=== PATIENT | female | born 1990 | race Caucasian/White ===

== ENCOUNTER 2016-08-01 07:34 | Emergency (ER) | payer BC ==
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
[2016-08-01 07:49] VITALS: BP 126/60
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
== END 2016-08-01 08:31 | disposition home or self-care (01) ==
LOC: MW.ED 07:34
DX: S99.911A Unspecified injury of right ankle, initial encounter (principal); K21.9 Gastro-esophageal reflux disease without esophagitis; F41.9 Anxiety disorder, unspecified; F32.9 Major depressive disorder, single episode, unspecified; J45.909 Unspecified asthma, uncomplicated; Z87.440 Personal history of urinary (tract) infections; Z88.1 Allergy status to other antibiotic agents; Z88.8 Allergy status to other drugs, medicaments and biological substances; X50.1XXA Overexertion from prolonged static or awkward postures, initial encounter
CPT/HCPCS: 73610-26-RT; 73610-RT; 99282; 99283

== ENCOUNTER 2016-08-09 03:06 | Emergency (ER) | payer BC ==
[2016-08-09 03:48] LABS: CHLORIDE,CL 109 mmol/L (98-110); SODIUM,NA 142 mmol/L (136-146)
[2016-08-09] MEDS ORDERED: Ondansetron 4 MG Tab.DIS PO STA (04:27)
[2016-08-09] MEDS ORDERED: Dicyclomine 10 MG Cap PO STA (04:28)
[2016-08-09 04:39] VITALS: BP 99/59
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
--- NOTE | 2016-08-09 11:44 | CR ---
EXAM DATE: 08/09/16 PATIENT'S AGE: 25 Patient: MAXIMILIANO ACUÑA Facility: [place], [place] Site . Site : 1990 Study: XRay Extremity Right [id number]/4/2017 4:00:28 AM Ordering Physician: Doctor Mathis Final Report: Indication: Re-injury right ankle Technique: Three views right ankle Comparison: August 01, 2016. Findings: Bones: Alignment is normal. No fractures or bone lesions. Joint spaces: Unremarkable. Soft tissues: Unremarkable. Impression: Negative. Dictated by Lea Asher MD @ Aug 09 2016 4:07AM (Electronic Signature) Report Signed by Proxy and Original Signed Document filed in the Medical Record. MTDD
== END 2016-08-09 04:59 | disposition home or self-care (01) ==
LOC: MW.ED 03:06
DX: M25.571 Pain in right ankle and joints of right foot (principal); N94.6 Dysmenorrhea, unspecified; J45.909 Unspecified asthma, uncomplicated; F32.9 Major depressive disorder, single episode, unspecified; F31.9 Bipolar disorder, unspecified; F41.9 Anxiety disorder, unspecified; Z79.899 Other long term (current) drug therapy; Z88.1 Allergy status to other antibiotic agents; Z88.8 Allergy status to other drugs, medicaments and biological substances
CPT/HCPCS: 36415; 73610; 80053; 82150; 83690; 84703; 85025; 99284; A9270; 99283

== ENCOUNTER 2016-09-08 07:49 | Day surgery (SDC) | payer BC ==
[2016-09-07 14:44] LABS: CHLORIDE,CL 107 mmol/L (98-110); SODIUM,NA 139 mmol/L (136-146)
[~2016-09-08 07:49] MED LIST: Lactated Ringers 1,000 ML IV SCH; Lidocaine 2% 100 MG/5 ML Syringe ONE; Lidocaine 2% 5 ML SDV ONE; Octyl 2-Cyanoacrylate 1 Tube ONE; Propofol 200 MG/20 ML SDV ONE; Sodium Chloride 0.9% 10 ML Syringe FLUSH PRN; Sodium Chloride 0.9% 2.5 ML Syringe FLUSH PRN
--- NOTE | 2016-09-08 08:46 | PCM.PREANE ---
Preanesthetic Assessment - Anesthesia/Transfusion/Family Hx Anesthesia History: No Prior Anesthesia Family History of Anesthesia Reaction: No Transfusion History: No Prior Transfusion(s) Intubation History: Unknown - Review of Systems General: No Symptoms Pulmonary: No Symptoms Cardiovascular: No Symptoms Gastrointestinal: No symptoms Neurological: No Symptoms Other: Reports: None - Physical Assessment O2 Sat by Pulse Oximetry: 97 Respiratory Rate: 16 Vital Signs: Last Vital Signs Temp 37.2 C 09/08/16 08:03 Pulse 92 09/08/16 08:03 Resp 16 09/08/16 08:03 BP 119/61 09/08/16 08:03 Pulse Ox 97 09/08/16 08:03 Height: 1.63 m Weight: 60.781 kg ASA Class: 2 Mental Status: Alert & Oriented x3 Airway Class: Mallampati = 2 Dentition: Reports: Normal Dentition ROM/Head Extension: Full Lungs: Clear to auscultation, Normal respiratory effort Cardiovascular: Regular Rate, Regular Rhythm - Lab Values: Laboratory Last Values WBC 6.23 K/uL (4.0-11.0) 09/07/16 14: RBC 4.60 M/uL (4.30-5.90) 09/07/16 14:17 Hgb 14.2 g/dL (12.0-16.0) 09/07/16 14:17 Hct 41.9 % (36.0-46.0) 09/07/16 14:17 MCV 91.1 fL (80.0-98.0) 09/07/16 14:17 MCH 30.9 pg (27.0-32.0) 09/07/16 14:17 MCHC 33.9 g/dL (31.0-37.0) 09/07/16 14:17 RDW Std Deviation 42.3 fl (28.0-62.0) 09/07/16 14:17 RDW Coeff of Thang 13 % (11.0-15.0) 09/07/16 14:17 Plt Count 242 K/uL (150-400) 09/07/16 14:17 MPV 10.20 fL (7.40-12.00) 09/07/16 14:17 Nucleated RBC % 0.0 /100WBC 09/07/16 14:17 Nucleated RBCs # 0 K/uL 09/07/16 14:17 Sodium 139 mmol/L (136-146) 09/07/16 14:17 Potassium 4.0 mmol/L (3.5-5.1) 09/07/16 14:17 Chloride 107 mmol/L (98-110) 09/07/16 14:17 Carbon Dioxide 21 mmol/L (21-31) 09/07/16 14:17 BUN 7 mg/dL (6.0-23.0) 09/07/16 14:17 Creatinine 0.9 mg/dL (0.6-1.5) 09/07/16 14:17 Est Cr Clr Drug Dosing 83.11 mL/min 09/07/16 14:17 Estimated GFR (MDRD) > 60.0 ml/min 09/07/16 14:17 Glucose 78 mg/dL (60-110) 09/07/16 14:17 Calcium 9.2 mg/dL (8.8-10.8) 09/07/16 14:17 HCG, Qual NEGATIVE (NEG) 09/07/16 14:17 Blood Type B POSITIVE 09/07/16 14:17 Antibody Screen NEGATIVE 09/07/16 14:17 - Allergies Allergies/Adverse Reactions: Allergies Allergy/AdvReac Type Severity Reaction Status Date / Time amoxicillin trihydrate Allergy Vomiting Verified 09/07/16 15:03 [From Augmentin] doxycycline Allergy Vomiting Verified 09/07/16 15:03 metronidazole [From Flagyl] Allergy Rash Verified 09/07/16 15:03 potassium clavulanate Allergy Vomiting Verified 09/07/16 15:03 [From Augmentin] - Blood Blood Available: No - Anesthesia Plan Pre-Op Medication Ordered: None - Acknowledgements Anesthesia Type Planned: General Anesthesia Pt an Appropriate Candidate for the Planned Anesthesia: Yes Alternatives and Risks of Anesthesia Discussed w Pt/Guardian: Yes Pt/Guardian Understands and Agrees with Anesthesia Plan: Yes PreAnesthesia Questionnaire HEENT History: Reports: None Cardiovascular History: Reports: None Respiratory History: Reports: Asthma Other Respiratory History: allergy related asthma Gastrointestinal History: Reports: GERD Genitourinary History: Reports: None Other Genitourinary History: herpes simplex 2 SVP [employer] History: Reports: , Other (see below) Other OB/BYN History: states pelvic pain x 4 years Musculoskeletal History: Reports: Back pain, chronic, Fracture Other Musculoskeletal History: lumbar disc disease, hx of fx left foot and right hand Neurological History: Reports: Migraines Psychiatric History: Reports: Anxiety, Bipolar, Depression Endocrine/Metabolic History: Reports: None Hematologic History: Reports: None Immunologic History: Reports: None Other Immunologic History: HSV-2 Oncologic (Cancer) History: Reports: None Dermatologic History: Reports: Other (see below) Other Dermatologic History: has genital herpes - Infectious Disease History Infectious Disease History: Reports: Chicken pox, Herpes Other Infectious Disease History: HSV-2 - Past Surgical History Head Surgeries/Procedures: Reports: None HEENT Surgical History: Reports: None Cardiovascular Surgical History: Reports: None Respiratory Surgical History: Reports: None GI Surgical History: Reports: None Female Surgical History: Reports: D&C Endocrine Surgical History: Reports: None Neurological Surgical History: Reports: None Musculoskeletal Surgical History: Reports: None Oncologic Surgical History: Reports: None Dermatological Surgical History: Reports: None - SUBSTANCE USE Smoking Status *Q: Never Smoker Second Hand Smoke Exposure: No Days Per Week of Alcohol Use: 1 Number of Drinks Per Day: 1 Total Drinks Per Week: 1 Recreational Drug Use History: No Recreational Drug Type: Reports: Cocaine - HOME MEDS Home Medications: Home Meds Desogestrel/Ethinyl Estradiol [Apri] 1 tab PO DAILY 02/28/15 [History] Albuterol Sulfate [Ventolin Hfa] 2 puff INH DAILY PRN 11/12/15 [History] clonazePAM [Klonopin] 2 mg PO QPM 11/12/15 [History] valACYclovir HCl [Valtrex] 1,000 mg PO QPM 11/12/15 [History] Sertraline [Zoloft] 100 mg PO BEDTIME 04/07/16 [History] Ondansetron [Zofran ODT] 4 mg PO ASDIRECTED 09/07/16 [History] - CURRENT (IN HOUSE) MEDS Current Meds: Current Medications Lactated Ringer's (Ringers, Lactated) 1,000 mls @ 125 mls/hr IV ASDIRECTED SARMAD Last Admin: 09/08/16 08:04 Dose: 125 mls/hr Sodium Chloride (Saline Flush) 10 ml FLUSH ASDIRECTED PRN PRN Reason: Keep Vein Open Sodium Chloride (Saline Flush) 2.5 ml FLUSH ASDIRECTED PRN PRN Reason: Keep Vein Open Discontinued Medications Lidocaine (Xylocaine-Mpf 2%) Confirm Administered Dose 5 ml .ROUTE .STK-MED ONE Stop: 09/08/16 07:30 Lidocaine HCl (Xylocaine 2%) Confirm Administered Dose 100 mg .ROUTE .STK-MED ONE Stop: 09/08/16 07:30 Octyl Cyanoacrylate (Dermabond Advance) Confirm Administered Dose 1 applic .ROUTE .STClearApp-MED ONE Stop: 09/08/16 06:49 Propofol (Diprivan 20 Ml) Confirm Administered Dose 400 mg .ROUTE .STK-MED ONE Stop: 09/08/16 07:30
[2016-09-08] MEDS ORDERED: fentaNYL 250 MCG/5 ML SDV ONE (08:59)
[2016-09-08] MEDS ORDERED: Midazolam 1 MG/ML 2 ML SDV ONE (08:59)
[2016-09-08] MEDS ORDERED: Rocuronium 10 MG/ML 10 ML Syringe ONE (09:02)
[2016-09-08] MEDS ORDERED: Neostigmine Methylsulfate 1 MG/ML 5 ML Syringe ONE (09:02)
[2016-09-08] MEDS ORDERED: Ondansetron 4 MG/2 ML SDV IVPUSH PRN (10:11)
[2016-09-08] MEDS ORDERED: Morphine 2 MG/ML Syringe IVPUSH PRN (10:11)
[2016-09-08] MEDS ORDERED: Morphine 4 MG/ML Syringe IVPUSH PRN (10:11)
[2016-09-08] MEDS ORDERED: Promethazine 25 MG/ML SDV IM PRN (10:11)
[2016-09-08] MEDS ORDERED: Ketorolac 30 MG/ML SDV IVPUSH ONE (10:11)
[2016-09-08] MEDS ORDERED: Ketorolac 30 MG/ML SDV IVPUSH PRN (10:11)
[2016-09-08] MEDS ORDERED: Acetaminophen/oxyCODONE 325-5 MG Tab PO PRN ×2 (10:11)
--- NOTE | 2016-09-08 10:16 | PCM.OPNOTE ---
- General Post-Op/Procedure Note Date of Surgery/Procedure: 09/08/16 Operative Procedure(s): Hystroscopy Dignostic laparascopy Pre Op Diagnosis: Pelvic pain Post-Op Diagnosis: Same Primary Surgeon: Frederick Patrick Audio Production Manager: Sadia Limon EBL in mLs: 25 Complications: None Condition: Good
--- NOTE | 2016-09-08 10:17 | PCM.DCSUM1 ---
Discharge Summary - Discharge Data Discharge Date: 09/08/16 Discharge Disposition: Home, Self-Care 01 Condition: Good - Patient Summary/Data Operative Procedure(s) Performed: Hystroscopy Dignostic laparascopy - Discharge Plan Home Medications: Home Meds Desogestrel/Ethinyl Estradiol [Apri] 1 tab PO DAILY 02/28/15 [History] Albuterol Sulfate [Ventolin Hfa] 2 puff INH DAILY PRN 11/12/15 [History] clonazePAM [Klonopin] 2 mg PO QPM 11/12/15 [History] valACYclovir HCl [Valtrex] 1,000 mg PO QPM 11/12/15 [History] Sertraline [Zoloft] 100 mg PO BEDTIME 04/07/16 [History] Ondansetron [Zofran ODT] 4 mg PO ASDIRECTED 09/07/16 [History] - General Info Date of Service: 09/08/16 Functional Status: Reports: pain controlled - Review of Systems General: Reports: No Symptoms HEENT: Reports: no symptoms Pulmonary: Reports: no symptoms Cardiovascular: Reports: No Symptoms Gastrointestinal: Reports: No symptoms Genitourinary: Reports: no symptoms Musculoskeletal: Reports: no symptoms Skin: Reports: no symptoms Neurological: Reports: No Symptoms Psychiatric: Reports: no symptoms - Patient Data Vitals - Most Recent: Last Vital Signs Temp 37.2 C 09/08/16 08:03 Pulse 92 09/08/16 08:03 Resp 16 09/08/16 08:46 BP 119/61 09/08/16 08:03 Pulse Ox 97 09/08/16 08:46 Weight - Most Recent: 60.781 kg Lab Results - Last 24 hrs: Laboratory Results - last 24 hr 09/07/16 09/07/16 09/07/16 Range/Units 14:17 14:17 14:17 WBC 6.23 (4.0-11.0) K/uL RBC 4.60 (4.30-5.90) M/uL Hgb 14.2 (12.0-16.0) g/dL Hct 41.9 (36.0-46.0) % MCV 91.1 (80.0-98.0) fL MCH 30.9 (27.0-32.0) pg MCHC 33.9 (31.0-37.0) g/dL RDW Std Deviation 42.3 (28.0-62.0) fl RDW Coeff of Thang 13 (11.0-15.0) % Plt Count 242 (150-400) K/uL MPV 10.20 (7.40-12.00) fL Nucleated RBC % 0.0 /100WBC Nucleated RBCs # 0 K/uL Sodium 139 (136-146) mmol/L Potassium 4.0 (3.5-5.1) mmol/L Chloride 107 (98-110) mmol/L Carbon Dioxide 21 (21-31) mmol/L BUN 7 (6.0-23.0) mg/dL Creatinine 0.9 (0.6-1.5) mg/dL Est Cr Clr Drug Dosing 83.11 mL/min Estimated GFR (MDRD) > 60.0 ml/min Glucose 78 (60-110) mg/dL Calcium 9.2 (8.8-10.8) mg/dL HCG, Qual NEGATIVE (NEG) Blood Type Antibody Screen 09/07/16 Range/Units 14:17 WBC (4.0-11.0) K/uL RBC (4.30-5.90) M/uL Hgb (12.0-16.0) g/dL Hct (36.0-46.0) % MCV (80.0-98.0) fL MCH (27.0-32.0) pg MCHC (31.0-37.0) g/dL RDW Std Deviation (28.0-62.0) fl RDW Coeff of Thang (11.0-15.0) % Plt Count (150-400) K/uL MPV (7.40-12.00) fL Nucleated RBC % /100WBC Nucleated RBCs # K/uL Sodium (136-146) mmol/L Potassium (3.5-5.1) mmol/L Chloride (98-110) mmol/L Carbon Dioxide (21-31) mmol/L BUN (6.0-23.0) mg/dL Creatinine (0.6-1.5) mg/dL Est Cr Clr Drug Dosing mL/min Estimated GFR (MDRD) ml/min Glucose (60-110) mg/dL Calcium (8.8-10.8) mg/dL HCG, Qual (NEG) Blood Type B POSITIVE Antibody Screen NEGATIVE Med Orders - Current: Current Medications Lactated Ringer's (Ringers, Lactated) 1,000 mls @ 125 mls/hr IV ASDIRECTED SARMAD Last Admin: 09/08/16 08:04 Dose: 125 mls/hr Ketorolac Tromethamine (Toradol) 30 mg IVPUSH ONETIME ONE Stop: 09/08/16 10:12 Ketorolac Tromethamine (Toradol) 30 mg IVPUSH Q6H PRN PRN Reason: Pain (severe 7-10) Stop: 09/13/16 10:12 Morphine Sulfate (Morphine) 2 mg IVPUSH Q2H PRN PRN Reason: Pain (severe 7-10) Morphine Sulfate (Morphine) 4 mg IVPUSH Q2H PRN PRN Reason: Pain (severe 7-10) Ondansetron HCl (Zofran) 4 mg IVPUSH Q6H PRN PRN Reason: Nausea/Vomiting Oxycodone/Acetaminophen (Percocet 325-5 Mg) 1 tab PO Q4H PRN PRN Reason: Pain (moderate 4-6) Oxycodone/Acetaminophen (Percocet 325-5 Mg) 2 tab PO Q4H PRN PRN Reason: Pain (moderate 4-6) Promethazine HCl (Phenergan) 25 mg IM Q6H PRN PRN Reason: Nausea/Vomiting Sodium Chloride (Saline Flush) 10 ml FLUSH ASDIRECTED PRN PRN Reason: Keep Vein Open Sodium Chloride (Saline Flush) 2.5 ml FLUSH ASDIRECTED PRN PRN Reason: Keep Vein Open Discontinued Medications Fentanyl (Sublimaze) Confirm Administered Dose 250 mcg .ROUTE .STK-MED ONE Stop: 09/08/16 09:00 Glycopyrrolate () Confirm Administered Dose 1 mg .ROUTE .STK-MED ONE Stop: 09/08/16 09:03 Lidocaine (Xylocaine-Mpf 2%) Confirm Administered Dose 5 ml .ROUTE .STK-MED ONE Stop: 09/08/16 07:30 Lidocaine HCl (Xylocaine 2%) Confirm Administered Dose 100 mg .ROUTE .STK-MED ONE Stop: 09/08/16 07:30 Midazolam HCl (Versed 1 Mg/Ml) Confirm Administered Dose 2 mg .ROUTE .STK-MED ONE Stop: 09/08/16 09:00 Neostigmine Methylsulfate (Neostigmine) Confirm Administered Dose 5 mg .ROUTE .STK-MED ONE Stop: 09/08/16 09:03 Octyl Cyanoacrylate (Dermabond Advance) Confirm Administered Dose 1 applic .ROUTE .STK-MED ONE Stop: 09/08/16 06:49 Propofol (Diprivan 20 Ml) Confirm Administered Dose 400 mg .ROUTE .STK-MED ONE Stop: 09/08/16 07:30 Rocuronium [place] (Zemuron) Confirm Administered Dose 100 mg .ROUTE .STK-MED ONE Stop: 09/08/16 09:03 - Exam General: Reports: alert, oriented HEENT: Reports: Pupils equal, Pupils reactive, EOMI, Mucous membr. moist/pink Neck: Reports: supple Lungs: Reports: Clear to auscultation, Normal respiratory effort Cardiovascular: Reports: Regular Rate, Regular Rhythm Abdomen: Reports: bowel sounds present, soft, no tenderness, no distension (Female) Exam: Normal external exam, Normal speculum exam, Normal bimanual exam Rectal (Female) Exam: Normal Exam, Normal rectal tone Back Exam: Reports: normal inspection, full range of motion Extremities: Reports: no edema, normal pulses Skin: Reports: warm, dry, intact Wound/Incisions: Reports: healing well Neurological: Reports: no new focal deficit Psy/Mental Status: Reports: alert, normal affect, normal mood *Q Meaningful Use (DIS) - VTE *Q VTE Criteria *Q: - Stroke *Q Stroke Criteria *Q: - AMI *Q AMI Criteria *Q:
[2016-09-08] MEDS ORDERED: fentaNYL 100 MCG/2 ML SDV ONE (10:33)
[2016-09-08] MEDS: fentaNYL 100 MCG/2 ML SDV IVPUSH PRN ×4 (10:35→11:02)
--- NOTE | 2016-09-08 11:04 | PCM.POSTAN ---
POST ANESTHESIA ASSESSMENT - MENTAL STATUS Mental Status: alert, oriented - RESPIRATORY Respiratory Status: respiratory rate WNL, airway patent, O2 saturation stable - CARDIOVASCULAR CV Status: pulse rate WNL, blood pressure stable - GASTROINTESTINAL GI Status: no symptoms - PAIN Pain Score: 4 (\) - POST OP HYDRATION Hydration Status: adequate & stable - OBSERVATIONS Free Text/Narrative:: no anesthesia problems
[2016-09-08 12:35] VITALS: BP 114/59
--- NOTE | 2016-09-08 12:59 | OR ---
SURGEON: Frederick Patrick MD DATE OF PROCEDURE: PREOPERATIVE DIAGNOSES: Pelvic pain, dysfunctional uterine bleeding. POSTOPERATIVE DIAGNOSES: Pelvic pain, dysfunctional uterine bleeding. OPERATION PERFORMED: A hysteroscopy and diagnostic laparoscopy. LAPELER: LEXIE Bentley. ANESTHESIA: General endotracheal intubation by Luke Tamayo and Dr. Brantley. ESTIMATED BLOOD LOSS: Less than 25 mL. COMPLICATION: None. FINDING: The hysteroscopic finding essentially is normal. Both tubal ostia was visualized and there is no polyp. There is no fibroid. The laparoscopic finding, the right ovary essentially is normal. The right pelvic sidewall is normal. The cul-de-sac is normal. The left ovary and the left pelvic sidewall was normal. There is no evidence of endometriosis. There is no evidence of scarring. INDICATION: This 26-year-old patient has pelvic pain. For detail of her indication, reader refer to the admit note. PROCEDURE IN DETAIL: The patient was brought to the OR, properly identified, and after adequate level of general anesthesia, and after taken a time out, the patient was prepped and draped in sterile fashion as usual. Straight catheter was used to empty the bladder and then the cervix was grabbed with a single-tooth tenaculum, dilated sequentially to accommodate. The hysteroscope and then hysteroscopy was performed. The hysteroscopic finding was normal. Both tubal ostia was visualized. There was no polyps and there was no fibroid. Satisfied with these findings. The hysteroscopic part of the procedure was ended and then Hulka manipulator placed in the uterus for manipulation. Then, the operation shifted abdominally. Stab wound done beneath the umbilicus. The Veress needle was placed in the peritoneal cavity and that cavity insufflated 3.5 L carbon dioxide and then utilizing the Visiport technique, the center trocar beneath the umbilicus placed and the peritoneal cavity was entered. Once we did that, then the patient placed in steep Trendelenburg and the 5-mm trocar placed in the left iliac fossa. The operation started by exploring the pelvis. The uterus was essentially was normal size, normal. There was no evidence of scarring. The right tubes and ovary are normal. The right pelvic sidewall was normal. There was no endometriosis. The left pelvic side wall was normal and the left pelvic tubes and ovaries normal. Bladder flap essentially was normal. Visualizing the appendix, the appendix was normal. There is no evidence. There is no gynecologic abnormality. Satisfied with these finding. Then peritoneal lavage was performed and after that the laparoscope was removed from the peritoneal cavity and so as the trocars, and the air evacuated from the peritoneal cavity in the multiple laparoscopic incisions closed in layers. Instrument sponge count was correct. The patient tolerated the procedure well, went to recovery room in stable general condition. LULY / REDDY /[id number]
== END 2016-09-08 12:36 | disposition home or self-care (01) ==
LOC: MW.SDS 07:49
PROVIDERS: ATTEND Obstetrics & Gynecology
DX: N93.8 Other specified abnormal uterine and vaginal bleeding (principal); R10.2 Pelvic and perineal pain; K21.9 Gastro-esophageal reflux disease without esophagitis; F41.9 Anxiety disorder, unspecified; M54.9 Dorsalgia, unspecified; F31.9 Bipolar disorder, unspecified; G43.909 Migraine, unspecified, not intractable, without status migrainosus; Z79.899 Other long term (current) drug therapy; Z88.0 Allergy status to penicillin; Z88.8 Allergy status to other drugs, medicaments and biological substances; Z88.1 Allergy status to other antibiotic agents; Z86.19 Personal history of other infectious and parasitic diseases
CPT/HCPCS: 36415; 49320; 58555; 80048; 84703; 85027; 86850; 86900; 86901; A9270; J2250; J3010; J7120; 00952; J2704

== ENCOUNTER 2016-09-26 17:14 | Emergency (ER) | payer BC ==
[2016-09-26 17:26] VITALS: BP 121/62
[2016-09-26] MEDS ORDERED: Sodium Chloride 0.9% 1,000 ML IV ONE (17:31)
[2016-09-26] MEDS ORDERED: Ondansetron 4 MG/2 ML SDV IVPUSH ONE (17:31)
--- NOTE | 2016-09-26 17:46 | EDM.PDOC ---
ED HPI GENERAL MEDICAL PROBLEM - General Chief Complaint: Abdominal Pain Stated Complaint: PT HAS STOMACH PAINS Time Seen by Provider: 09/26/16 17:20 - History of Present Illness INITIAL COMMENTS - FREE TEXT/NARRATIVE: HISTORY AND PHYSICAL: History of present illness: Patient 26-year-old female she concern of abdominal pain and vaginal bleeding patient is approximately 2 weeks status post laparoscopy for endometriosis she stopped her hormone therapy without M.D. involvement. She denies fever chills chest pain shortness of breath or other concern Review of systems: As per history of present illness and below otherwise all systems reviewed and negative. Past medical history: As per history of present illness and as reviewed below otherwise noncontributory. Surgical history: As per history of present illness and as reviewed below otherwise noncontributory. Social history: No reported history of drug or alcohol abuse. Family history: As per history of present illness and as reviewed below otherwise noncontributory. Physical exam: HEENT: Atraumatic, normocephalic, pupils reactive, negative for conjunctival pallor or scleral icterus, mucous membranes moist, throat clear, neck supple, nontender, trachea midline. Lungs: Clear to auscultation, breath sounds equal bilaterally, chest nontender. Heart: S1S2, regular, negative for clicks, rubs, or JVD. Abdomen: Soft, nondistended, no localized tenderness. Negative for masses or hepatosplenomegaly. Negative for costovertebral tenderness. Pelvis: Stable nontender. Genitourinary: Deferred. Rectal: Deferred. Extremities: Atraumatic, Neuro: Awake, alert, oriented. 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 Left Lower Abdominal Pain Score (Numeric/FACES): 8 - Related Data Allergies Allergy/AdvReac Type Severity Reaction Status Date / Time amoxicillin trihydrate Allergy Vomiting Verified 09/07/16 15:03 [From Augmentin] doxycycline Allergy Vomiting Verified 09/07/16 15:03 metronidazole [From Flagyl] Allergy Rash Verified 09/07/16 15:03 potassium clavulanate Allergy Vomiting Verified 09/07/16 15:03 [From Augmentin] Home Meds: Home Meds Desogestrel/Ethinyl Estradiol [Apri] 1 tab PO DAILY 02/28/15 [History] Albuterol Sulfate [Ventolin Hfa] 2 puff INH DAILY PRN 11/12/15 [History] clonazePAM [Klonopin] 2 mg PO QPM 11/12/15 [History] valACYclovir HCl [Valtrex] 1,000 mg PO QPM 11/12/15 [History] Sertraline [Zoloft] 100 mg PO BEDTIME 04/07/16 [History] Ondansetron [Zofran ODT] 4 mg PO ASDIRECTED 09/07/16 [History] Past Medical History HEENT History: Reports: None Cardiovascular History: Reports: None Respiratory History: Reports: Asthma Other Respiratory History: allergy related asthma Gastrointestinal History: Reports: GERD Genitourinary History: Reports: None Other Genitourinary History: herpes simplex 2 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: , Other (See Below) Other OB/BYN History: states pelvic pain x 4 years Musculoskeletal History: Reports: Back Pain, Chronic, Fracture Other Musculoskeletal History: lumbar disc disease, hx of fx left foot and right hand Neurological History: Reports: Migraines Psychiatric History: Reports: Anxiety, Bipolar, Depression Endocrine/Metabolic History: Reports: None Hematologic History: Reports: None Immunologic History: Reports: None Other Immunologic History: HSV-2 Oncologic (Cancer) History: Reports: None Dermatologic History: Reports: Other (See Below) Other Dermatologic History: has genital herpes - Infectious Disease History Infectious Disease History: Reports: Chicken Pox, Herpes Other Infectious Disease History: HSV-2 - Past Surgical History Head Surgeries/Procedures: Reports: None HEENT Surgical History: Reports: None Cardiovascular Surgical History: Reports: None Respiratory Surgical History: Reports: None GI Surgical History: Reports: None Female Surgical History: Reports: D&C Endocrine Surgical History: Reports: None Neurological Surgical History: Reports: None Oncologic Surgical History: Reports: None Social & Family History - Family History Family Medical History: Noncontributory - Tobacco Use Smoking Status *Q: Never Smoker Second Hand Smoke Exposure: No - Caffeine Use Caffeine Use: Reports: None, Soda - Alcohol Use Days Per Week of Alcohol Use: 1 Number of Drinks Per Day: 1 Total Drinks Per Week: 1 - Recreational Drug Use Recreational Drug Use: No Drug Use in Last 12 Months: No Recreational Drug Type: Reports: Cocaine Recreational Drug Use Frequency: Rarely ED ROS GENERAL - Review of Systems Review Of Systems: ROS reveals no pertinent complaints other than HPI. ED EXAM, GENERAL - Physical Exam Exam: See Below (See dictation) Course - Vital Signs Last Recorded V/S: Last Vital Signs Temp 36.3 C 09/26/16 17:23 Pulse 83 09/26/16 17:23 Resp 16 09/26/16 17:23 BP 121/62 09/26/16 17:23 Pulse Ox 97 09/26/16 17:23 - Orders/Labs/Meds Orders: Active Orders 24 hr Category Date Time Status Abdomen Pelvis wo Cont [CT] Stat Exams 09/26/16 17:31 Ordered Chest 2V [CR] Stat Exams 09/26/16 17:31 Ordered AMYLASE [CHEM] Stat Lab 09/26/16 17:30 Ordered CBC WITH AUTO DIFF [HEME] Stat Lab 09/26/16 17:30 Ordered COMPREHENSIVE METABOLIC PN,CMP [CHEM] Stat Lab 09/26/16 17:30 Ordered CULTURE URINE [RM] Stat Lab 09/26/16 17:31 Uncollected DRUG SCREEN, URINE [URCHEM] Stat Lab 09/26/16 17:31 Uncollected HCG QUALITATIVE,SERUM [CHEM] Stat Lab 09/26/16 17:30 Ordered INR,PT,PROTHROMBIN TIME [COAG] Stat Lab 09/26/16 17:30 Ordered UA W/MICROSCOPIC [URIN] Stat Lab 09/26/16 17:30 Uncollected Sodium Chloride 0.9% [Normal Saline] 1,000 ml Med 09/26/16 17:31 Ordered IV STAT Medication Orders Sodium Chloride (Normal Saline) 1,000 mls @ 999 mls/hr IV STAT ONE Stop: 09/26/16 18:31 Meds: Medications Generic Name Dose Route Start Last Admin Trade Name Freq PRN Reason Stop Dose Admin Sodium Chloride 1,000 mls @ 999 mls/hr 09/26/16 17:31 Normal Saline IV 09/26/16 18:31 STAT ONE Discontinued Medications Generic Name Dose Route Start Last Admin Trade Name Frank PRN Reason Stop Dose Admin Ondansetron HCl 4 mg 09/26/16 17:31 Zofran IVPUSH 09/26/16 17:32 ONETIME ONE Departure - Departure Time of Disposition: 17:46 Disposition: Against Medical Advice 07 Condition: undetermined Clinical Impression: Left against medical advice - Discharge Information Forms: ED Department Discharge Additional Instructions: The following information is given to patients seen in the emergency department who are being discharged to home. This information is to outline your options for follow-up care. We provide all patients seen in our emergency department with a follow-up referral. The need for follow-up, as well as the timing and circumstances, are variable depending upon the specifics of your emergency department visit. If you don't have a primary care physician on staff, we will provide you with a referral. We always advise you to contact your personal physician following an emergency department visit to inform them of the circumstance of the visit and for follow-up with them and/or the need for any referrals to a consulting specialist. The emergency department will also refer you to a specialist when appropriate. This referral assures that you have the opportunity for followup care with a specialist. All of these measure are taken in an effort to provide you with optimal care, which includes your followup. Under all circumstances we always encourage you to contact your private physician who remains a resource for coordinating your care. When calling for followup care, please make the office aware that this follow-up is from your recent emergency room visit. If for any reason you are refused follow-up, please contact the [facility] emergency department at and asked to speak to the emergency department charge nurse. Followup primary medical doctor/OB gynecology KIKE return as needed as discussed - My Orders Last 24 Hours: My Active Orders 09/26/16 17:30 AMYLASE [CHEM] Stat CBC WITH AUTO DIFF [HEME] Stat COMPREHENSIVE METABOLIC PN,CMP [CHEM] Stat HCG QUALITATIVE,SERUM [CHEM] Stat INR,PT,PROTHROMBIN TIME [COAG] Stat UA W/MICROSCOPIC [URIN] Stat 09/26/16 17:31 Abdomen Pelvis wo Cont [CT] Stat Chest 2V [CR] Stat CULTURE URINE [RM] Stat DRUG SCREEN, URINE [URCHEM] Stat Sodium Chloride 0.9% [Normal Saline] 1,000 ml IV STAT - Assessment/Plan Last 24 Hours: My Active Orders 09/26/16 17:30 AMYLASE [CHEM] Stat CBC WITH AUTO DIFF [HEME] Stat COMPREHENSIVE METABOLIC PN,CMP [CHEM] Stat HCG QUALITATIVE,SERUM [CHEM] Stat INR,PT,PROTHROMBIN TIME [COAG] Stat UA W/MICROSCOPIC [URIN] Stat 09/26/16 17:31 Abdomen Pelvis wo Cont [CT] Stat Chest 2V [CR] Stat CULTURE URINE [RM] Stat DRUG SCREEN, URINE [URCHEM] Stat Sodium Chloride 0.9% [Normal Saline] 1,000 ml IV STAT
== END 2016-09-26 18:10 | disposition left against medical advice (07) ==
LOC: MW.ED 17:14
DX: R10.9 Unspecified abdominal pain (principal); J45.909 Unspecified asthma, uncomplicated; K21.9 Gastro-esophageal reflux disease without esophagitis; F41.9 Anxiety disorder, unspecified; F32.9 Major depressive disorder, single episode, unspecified; F31.9 Bipolar disorder, unspecified; Z79.899 Other long term (current) drug therapy; Z88.1 Allergy status to other antibiotic agents; Z88.8 Allergy status to other drugs, medicaments and biological substances
CPT/HCPCS: 99282; 99284

== ENCOUNTER 2016-10-17 23:33 | Emergency (ER) | payer BC ==
[2016-10-17] MEDS ORDERED: Sodium Chloride 0.9% 1,000 ML IV ONE (23:53)
[2016-10-18] MEDS ORDERED: Albuterol/Ipratropium 3.0-0.5 MG/3 ML Neb Soln NEB ONE (00:04)
[2016-10-18] MEDS ORDERED: methylPREDNISolone Sodium Succinate 125 MG/2 ML SDV IVPUSH ONE (00:05)
--- NOTE | 2016-10-18 01:05 | EDM.PDOC ---
ED HPI GENERAL MEDICAL PROBLEM - General Chief Complaint: Respiratory Problem Stated Complaint: SHORTNESS OF BREATH, ASTHMA, COUGH, LIGHT-HEADED Time Seen by Provider: 10/17/16 23:43 Source of Information: Reports: Patient History Limitations: Reports: No Limitations - History of Present Illness INITIAL COMMENTS - FREE TEXT/NARRATIVE: HISTORY AND PHYSICAL: History of present illness: [26-year-old female with a history of depression and bipolar disease endometriosis anxiety currently on Klonopin also with a history of benzodiazepine withdrawal and having previously left AGAINST MEDICAL ADVICE, now presents emergency department complaining of cough and wheezing for 2 hours. Patient denies productive cough states she's been congested over the last 2 hours and is concerned she might be evolving bronchitis. Patient is not a smoker she has no fevers chills sweats or shaking chills. Patient has no history of immunocompromise and eyes possibility of as she is currently on control therapy to treat a history of menometrorrhagia Review of systems: As per history of present illness and below otherwise all systems reviewed and negative. Past medical history: As per history of present illness and as reviewed below otherwise noncontributory. Surgical history: As per history of present illness and as reviewed below otherwise noncontributory. Social history: No reported history of drug or alcohol abuse. Family history: As per history of present illness and as reviewed below otherwise noncontributory. Physical exam: Patient mildly anxious but alert communicative and cooperative HEENT: Atraumatic, normocephalic, pupils reactive, negative for conjunctival pallor or scleral icterus, mucous membranes moist, throat clear, neck supple, nontender, trachea midline. Lungs: Clear to auscultation, breath sounds equal bilaterally, chest nontender. Heart: S1S2, regular, negative for clicks, rubs, or JVD. Abdomen: Soft, nondistended, nontender. Negative for masses or hepatosplenomegaly. Negative for costovertebral tenderness. Pelvis: Stable nontender. Genitourinary: Deferred. Rectal: Deferred. Extremities: Atraumatic, negative for cords or calf pain. Neurovascular unremarkable. Neuro: Awake, alert, oriented. Cranial nerves grossly unremarkable. Cerebellum unremarkable. Motor and sensory unremarkable throughout. Exam nonfocal. Diagnostics: [Chest x-ray with nipple piercings in place. No acute disease. Interpreted by me. Therapeutics: [Solu-Medrol and IV fluids DuoNeb] Impression: [] Plan: [Signs and symptoms consistent with exacerbation of bronchospasm for which patient occasionally uses inhaler. Asymptomatic after steroids and DuoNeb. Patient with clearly contributory anxiety component. She requested IV fluids because she states she "felt dehydrated. "Stable on reevaluation prior to discharge no further workup or treatment indicated. Patient agrees with outpatient follow-up. Strict return precautions given. Prescription for prednisone dispensed] Definitive disposition and diagnosis as appropriate pending reevaluation and review of above. 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: Albuterol Inhaler chest area Pain Score (Numeric/FACES): 8 - Related Data Allergies Allergy/AdvReac Type Severity Reaction Status Date / Time amoxicillin trihydrate Allergy Vomiting Verified 10/17/16 23:37 [From Augmentin] doxycycline Allergy Vomiting Verified 10/17/16 23:37 metronidazole [From Flagyl] Allergy Rash Verified 10/17/16 23:37 potassium clavulanate Allergy Vomiting Verified 10/17/16 23:37 [From Augmentin] Home Meds: Home Meds Desogestrel/Ethinyl Estradiol [Apri] 1 tab PO DAILY 02/28/15 [History] Albuterol Sulfate [Ventolin Hfa] 2 puff INH DAILY PRN 11/12/15 [History] clonazePAM [Klonopin] 2 mg PO QPM 11/12/15 [History] valACYclovir HCl [Valtrex] 1,000 mg PO QPM 11/12/15 [History] Sertraline [Zoloft] 100 mg PO BEDTIME 04/07/16 [History] Prednisone [IMW: predniSONE] 40 mg PO WITHBREAKFAST #4 tab 10/18/16 [Rx] Past Medical History HEENT History: Reports: None Cardiovascular History: Reports: None Respiratory History: Reports: Asthma Other Respiratory History: allergy related asthma Gastrointestinal History: Reports: GERD Genitourinary History: Reports: None Other Genitourinary History: herpes simplex 2 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: Reports: Other OB/BYN History: states pelvic pain x 4 years Musculoskeletal History: Reports: Back Pain, Chronic, Fracture Other Musculoskeletal History: lumbar disc disease, hx of fx left foot and right hand Neurological History: Reports: Migraines Psychiatric History: Reports: Anxiety, Bipolar, Depression Endocrine/Metabolic History: Reports: None Hematologic History: Reports: None Immunologic History: Reports: None Other Immunologic History: HSV-2 Oncologic (Cancer) History: Reports: None Dermatologic History: Reports: Other (See Below) Other Dermatologic History: has genital herpes - Infectious Disease History Infectious Disease History: Reports: Herpes Other Infectious Disease History: HSV-2 - Past Surgical History Head Surgeries/Procedures: Reports: None HEENT Surgical History: Reports: None Cardiovascular Surgical History: Reports: None Respiratory Surgical History: Reports: None GI Surgical History: Reports: None Female Surgical History: Reports: D&C Endocrine Surgical History: Reports: None Neurological Surgical History: Reports: None Oncologic Surgical History: Reports: None Social & Family History - Family History Family Medical History: Noncontributory - Tobacco Use Smoking Status *Q: Never Smoker Second Hand Smoke Exposure: No - Caffeine Use Caffeine Use: Reports: Coffee, Soda, Tea - Alcohol Use Days Per Week of Alcohol Use: 1 Number of Drinks Per Day: 1 Total Drinks Per Week: 1 - Recreational Drug Use Recreational Drug Use: No Drug Use in Last 12 Months: No Recreational Drug Type: Reports: Cocaine Recreational Drug Use Frequency: Rarely ED ROS GENERAL - Review of Systems Review Of Systems: See Below (History of present illness) ED EXAM, GENERAL - Physical Exam Exam: See Below (History of present illness) Course - Vital Signs Last Recorded V/S: Last Vital Signs Temp 36.8 C 10/18/16 01:58 Pulse 106 H 10/18/16 01:58 Resp 16 10/18/16 01:58 BP 130/63 10/18/16 01:58 Pulse Ox 96 10/18/16 01:58 - Orders/Labs/Meds Meds: Medications Discontinued Medications Generic Name Dose Route Start Last Admin Trade Name Frank PRN Reason Stop Dose Admin Albuterol/Ipratropium 3 ml 10/18/16 00:04 10/18/16 00:17 Duoneb 3.0-0.5 Mg/3 Ml NEB 10/18/16 00:05 3 ml ONETIME ONE Administration Sodium Chloride 1,000 mls @ 999 mls/hr 10/17/16 23:53 10/18/16 00:02 Normal Saline IV 10/18/16 00:53 999 mls/hr STAT ONE Administration Methylprednisolone Sodium Succinate 125 mg 10/18/16 00:05 10/18/16 00:18 Solu-Medrol IVPUSH 10/18/16 00:06 125 mg ONETIME ONE Administration Departure - Departure Time of Disposition: 02:00 Disposition: Home, Self-Care 01 Clinical Impression: Acute bronchospasm, Anxiety, Acute upper respiratory infection - Discharge Information Prescriptions: Prednisone [IMW: predniSONE] 40 mg PO WITHBREAKFAST #4 tab Instructions: Allergies, [id number]-[id number] Referrals: [facility] [Outside] Forms: ED Department Discharge
[2016-10-18 01:59] VITALS: BP 130/63
--- NOTE | 2016-10-18 12:58 | CR ---
EXAM DATE: 10/17/16 PATIENT'S AGE: 26 Patient: MAXIMILIANO ACUÑA Facility: [place], [place] Site . Site : 1990 Study: XRay Chest [id number]/13/2017 12:47:03 AM Ordering Physician: Mono Rodriguez Final Report: INDICATION: cough TECHNIQUE: Chest radiograph 2 views COMPARISON: 05/14/16 FINDINGS: Cardiovascular and mediastinum: The cardiac silhouette is normal in appearance and size. Mediastinum is within normal limits. Lungs and pleural spaces: Both lungs are unremarkable in appearance. No sign of pleural effusion. No pneumothorax is seen. Bones and soft tissues: No significant findings. Bilateral metallic nipple piercings present. IMPRESSION: 1. No acute cardiopulmonary disease seen. Dictated by: Donnell Malin MD @ 10/18/2016 00:48:10 (Electronic Signature) MTDD
== END 2016-10-18 01:58 | disposition home or self-care (01) ==
LOC: MW.ED 23:33
DX: J98.01 Acute bronchospasm (principal); J06.9 Acute upper respiratory infection, unspecified; F41.9 Anxiety disorder, unspecified; K21.9 Gastro-esophageal reflux disease without esophagitis; G43.909 Migraine, unspecified, not intractable, without status migrainosus; F31.9 Bipolar disorder, unspecified; Z79.899 Other long term (current) drug therapy; Z88.1 Allergy status to other antibiotic agents
CPT/HCPCS: 71020; 96361; 96374; 99283; J2930; J7040; 99284

== ENCOUNTER 2016-12-03 21:34 | Emergency (ER) | payer BC ==
[2016-12-03] MEDS ORDERED: LORazepam 0.5 MG Tab PO ONE (22:09)
--- NOTE | 2016-12-03 22:09 | EDM.PDOC ---
ED HPI GENERAL MEDICAL PROBLEM - General Chief Complaint: General Stated Complaint: WITHDRAW FROM ANXIETY MEDS Time Seen by Provider: 12/03/16 21:58 Source of Information: Reports: Patient History Limitations: Reports: No Limitations - History of Present Illness INITIAL COMMENTS - FREE TEXT/NARRATIVE: HISTORY AND PHYSICAL: History of present illness: [Patient comes to the emergency room complaining of having run out of her Klonopin. She follows with Tammie Brennan at [facility] and states that her prescription for Klonopin was written incorrectly and now she has run short on her prescription. She ran out of her medication 3 days ago and is not eligible for refill until December 10. She has been taking this medication on and off for the past 5-6 years for anxiety. She states that she feels sweaty and shaky and feels more anxious than usual. She has not tried to reach provider environmental health safety manager for [facility] to request a refill of her Klonopin. She denies fever and chills. No chest pain shortness of breath or difficulty breathing. She has no other complaints or concerns other than requesting prescription for Klonopin to last her until she can get a refill on December 10.] Review of systems: As per history of present illness and below otherwise all systems reviewed and negative. Past medical history: As per history of present illness and as reviewed below otherwise noncontributory. Surgical history: As per history of present illness and as reviewed below otherwise noncontributory. Social history: No reported history of drug or alcohol abuse. Family history: As per history of present illness and as reviewed below otherwise noncontributory. Physical exam: HEENT: Atraumatic, normocephalic. Lungs: Clear to auscultation, breath sounds equal bilaterally. Heart: S1S2, regular rate and rhythm. Extremities: Atraumatic, no cyanosis or edema to feet or lower legs. Neurovascular unremarkable. Neuro: Awake, alert, oriented. Speech is clear. Motor and sensory unremarkable throughout. Exam nonfocal. Therapeutics: [Ativan 0.5 mg by mouth] Impression: [anxiety] Plan: [Ativan 0.5mg po given in ER. She is advised to contact the provider on-call for her primary care office tomorrow to inquire about her Klonopin prescription she is advised this is a 1 time dose of this medication and that she needs to follow-up with her primary care in order to receive a refill or guidance on how to proceed without her medication. Patients in agreement with today's plan.] Definitive disposition and diagnosis as appropriate pending reevaluation and review of above. lower back Pain Score (Numeric/FACES): 6 - Related Data Allergies Allergy/AdvReac Type Severity Reaction Status Date / Time amoxicillin trihydrate Allergy Vomiting Verified 12/03/16 21:39 [From Augmentin] doxycycline Allergy Vomiting Verified 12/03/16 21:39 metronidazole [From Flagyl] Allergy Rash Verified 12/03/16 21:39 potassium clavulanate Allergy Vomiting Verified 12/03/16 21:39 [From Augmentin] Home Meds: Home Meds Desogestrel/Ethinyl Estradiol [Apri] 1 tab PO DAILY 02/28/15 [History] Albuterol Sulfate [Ventolin Hfa] 2 puff INH DAILY PRN 11/12/15 [History] clonazePAM [Klonopin] 2 mg PO QPM 11/12/15 [History] valACYclovir HCl [Valtrex] 1,000 mg PO QPM 11/12/15 [History] Sertraline [Zoloft] 200 mg PO BEDTIME 04/07/16 [History] Prednisone [IMW: predniSONE] 40 mg PO WITHBREAKFAST #4 tab 10/18/16 [Rx] Past Medical History HEENT History: Reports: None Cardiovascular History: Reports: None Respiratory History: Reports: Asthma Other Respiratory History: allergy related asthma Gastrointestinal History: Reports: GERD Genitourinary History: Reports: None Other Genitourinary History: herpes simplex 2 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 OB/BYN History: states pelvic pain x 4 years Musculoskeletal History: Reports: Back Pain, Chronic, Fracture Other Musculoskeletal History: lumbar disc disease, hx of fx left foot and right hand Neurological History: Reports: Migraines Psychiatric History: Reports: Anxiety, Bipolar, Depression Endocrine/Metabolic History: Reports: None Hematologic History: Reports: None Immunologic History: Reports: None Other Immunologic History: HSV-2 Oncologic (Cancer) History: Reports: None Dermatologic History: Reports: Other (See Below) Other Dermatologic History: has genital herpes - Infectious Disease History Infectious Disease History: Reports: None Other Infectious Disease History: HSV-2 - Past Surgical History Head Surgeries/Procedures: Reports: None HEENT Surgical History: Reports: None Cardiovascular Surgical History: Reports: None Respiratory Surgical History: Reports: None GI Surgical History: Reports: None Female Surgical History: Reports: D&C Endocrine Surgical History: Reports: None Neurological Surgical History: Reports: None Oncologic Surgical History: Reports: None Social & Family History - Family History Family Medical History: Noncontributory - Tobacco Use Smoking Status *Q: Never Smoker Second Hand Smoke Exposure: No - Caffeine Use Caffeine Use: Reports: Coffee, Soda, Tea - Alcohol Use Days Per Week of Alcohol Use: 1 Number of Drinks Per Day: 1 Total Drinks Per Week: 1 - Recreational Drug Use Recreational Drug Use: No Drug Use in Last 12 Months: No Recreational Drug Type: Reports: Cocaine Recreational Drug Use Frequency: Rarely ED ROS GENERAL - Review of Systems Review Of Systems: ROS reveals no pertinent complaints other than HPI. ED EXAM, GENERAL - Physical Exam Exam: See Below Course - Vital Signs Last Recorded V/S: Last Vital Signs Temp 98.1 F 12/03/16 21:41 Pulse 91 12/03/16 21:41 Resp 14 12/03/16 21:41 BP 128/66 12/03/16 21:41 Pulse Ox 97 12/03/16 21:41 Departure - Departure Time of Disposition: 22:15 Disposition: Home, Self-Care 01 Condition: Good Clinical Impression: Anxiety - Discharge Information Forms: ED Department Discharge Additional Instructions: The following information is given to patients seen in the emergency department who are being discharged to home. This information is to outline your options for follow-up care. We provide all patients seen in our emergency department with a follow-up referral. The need for follow-up, as well as the timing and circumstances, are variable depending upon the specifics of your emergency department visit. If you don't have a primary care physician on staff, we will provide you with a referral. We always advise you to contact your personal physician following an emergency department visit to inform them of the circumstance of the visit and for follow-up with them and/or the need for any referrals to a consulting specialist. The emergency department will also refer you to a specialist when appropriate. This referral assures that you have the opportunity for follow-up care with a specialist. All of these measure are taken in an effort to provide you with optimal care, which includes your follow-up. Under all circumstances we always encourage you to contact your private physician who remains a resource for coordinating your care. When calling for follow-up care, please make the office aware that this follow-up is from your recent emergency room visit. If for any reason you are refused follow-up, please contact the [facility] emergency department at and asked to speak to the emergency department charge nurse. [address] [address] Follow-up with your primary care provider on Monday. [facility] always has a provider environmental health safety manager available over the weekend. You may attempt to reach them tomorrow. Return to ER as needed as discussed.
[2016-12-03 22:27] VITALS: BP 117/59
== END 2016-12-03 22:27 | disposition home or self-care (01) ==
LOC: MW.ED 21:34
DX: F41.9 Anxiety disorder, unspecified (principal); J45.909 Unspecified asthma, uncomplicated; K21.9 Gastro-esophageal reflux disease without esophagitis; Z79.899 Other long term (current) drug therapy; Z88.1 Allergy status to other antibiotic agents; Z88.8 Allergy status to other drugs, medicaments and biological substances
CPT/HCPCS: 99283; A9270

== ENCOUNTER 2017-02-12 09:15 | Emergency (ER) | payer BC ==
--- NOTE | 2017-02-12 09:32 | EDM.PDOC ---
ED HPI GENERAL MEDICAL PROBLEM - General Chief Complaint: Lower Extremity Injury/Pain Stated Complaint: HURT ANKLE Time Seen by Provider: 02/12/17 09:23 - History of Present Illness INITIAL COMMENTS - FREE TEXT/NARRATIVE: HISTORY AND PHYSICAL: History of present illness: The patient is a 26-year-old female who follows at [facility] with Tammie Brennan and has had multiple ER visits in the past for a variety of complaints and presents today with complaints of left ankle pain that started last evening after she twisted it going down some stairs. She did not fall to the ground. Her head pass out or black out and has no head neck or back pain and she has pain localized to the ankle on the left in the arch of foot. She says it was very swollen last night but she elevated and iced it and it has improved. She says it's still painful when she puts weight on it. She has no proximal leg knee thigh or hip pain and all other extremities are without discomfort. Patient took some ibuprofen at home before coming here and she denies . The patient has been ambulating on it. Patient says that she did gymnastics when she was younger and has had ankle sprains in the past. Patient also states that she has some pain in her left ear that she would also like me to check out while she is here Review of systems: As per history of present illness and below otherwise all systems reviewed and negative. Past medical history: As per history of present illness and as reviewed below otherwise noncontributory. Surgical history: As per history of present illness and as reviewed below otherwise noncontributory. Social history: No reported history of drug or alcohol abuse. Family history: As per history of present illness and as reviewed below otherwise noncontributory. Physical exam: Gen.: Well-developed well-nourished female who is nontoxic and vital signs been reviewed by me. HEENT: Atraumatic, normocephalic,negative for conjunctival pallor or scleral icterus, mucous membranes moist, throat clear, neck supple, nontender, trachea midline. There is no cervical adenopathy or nuchal rigidity. TM on the right is slightly dull TM on the left is within normal limits and there is no swelling of the external canals bilaterally. There is no mastoid tenderness or erythema. Lungs: Clear to auscultation, breath sounds equal bilaterally, chest nontender. Heart: S1S2, regular rate and rhythm no overt murmurs. Abdomen: Soft, nondistended, nontender. NABS Pelvis: Stable nontender. There is no lateral hip tenderness on the left Genitourinary: Deferred. Rectal: Deferred. Extremities: Atraumatic appearing throughout all extremities including the left ankle and there is full range of motion. There is some minimal tenderness and soft tissue swelling seen at the ankle diffusely and the foot is without bony tenderness swelling deformities or ecchymosis. The proximal left leg thigh and hip are without tenderness or deformities. The legs are, negative for cords or calf pain. Neurovascular unremarkable. Neuro: Awake, alert, oriented. Cranial nerves II through XII unremarkable. Cerebellum unremarkable. Motor and sensory unremarkable throughout. Exam nonfocal. Diagnostics: X-ray of the left foot and ankle Therapeutics: Crutches, Aircast Impression: Left ankle injury/sprain; left otalgia stable Definitive disposition and diagnosis as appropriate pending reevaluation and review of above. Left Ankle Pain Score (Numeric/FACES): 7 - Related Data Allergies Allergy/AdvReac Type Severity Reaction Status Date / Time amoxicillin trihydrate Allergy Vomiting Verified 02/12/17 09:22 [From Augmentin] doxycycline Allergy Vomiting Verified 02/12/17 09:22 metronidazole [From Flagyl] Allergy Rash Verified 02/12/17 09:22 potassium clavulanate Allergy Vomiting Verified 02/12/17 09:22 [From Augmentin] Home Meds: Home Meds Desogestrel/Ethinyl Estradiol [Apri] 1 tab PO DAILY 02/28/15 [History] Albuterol Sulfate [Ventolin Hfa] 2 puff INH DAILY PRN 11/12/15 [History] valACYclovir HCl [Valtrex] 1,000 mg PO QPM 11/12/15 [History] LORazepam [Ativan] 2 mg PO DAILY 02/12/17 [History] Venlafaxine [Effexor] 37.5 mg PO BID 02/12/17 [History] Past Medical History HEENT History: Reports: None Cardiovascular History: Reports: None Respiratory History: Reports: Asthma Other Respiratory History: allergy related asthma Gastrointestinal History: Reports: GERD Genitourinary History: Reports: None Other Genitourinary History: herpes simplex 2 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 OB/BYN History: states pelvic pain x 4 years Musculoskeletal History: Reports: Back Pain, Chronic, Fracture Other Musculoskeletal History: lumbar disc disease, hx of fx left foot and right hand Neurological History: Reports: Migraines Psychiatric History: Reports: Anxiety, Bipolar, Depression Endocrine/Metabolic History: Reports: None Hematologic History: Reports: None Immunologic History: Reports: None Other Immunologic History: HSV-2 Oncologic (Cancer) History: Reports: None Dermatologic History: Reports: Other (See Below) Other Dermatologic History: has genital herpes - Infectious Disease History Infectious Disease History: Reports: None Other Infectious Disease History: HSV-2 - Past Surgical History Head Surgeries/Procedures: Reports: None HEENT Surgical History: Reports: None Cardiovascular Surgical History: Reports: None Respiratory Surgical History: Reports: None GI Surgical History: Reports: None Female Surgical History: Reports: D&C Endocrine Surgical History: Reports: None Neurological Surgical History: Reports: None Oncologic Surgical History: Reports: None Social & Family History - Family History Family Medical History: Noncontributory - Tobacco Use Smoking Status *Q: Never Smoker Second Hand Smoke Exposure: No - Caffeine Use Caffeine Use: Reports: Coffee, Soda, Tea - Alcohol Use Days Per Week of Alcohol Use: 1 Number of Drinks Per Day: 1 Total Drinks Per Week: 1 - Recreational Drug Use Recreational Drug Use: No Drug Use in Last 12 Months: No Recreational Drug Type: Reports: Cocaine Recreational Drug Use Frequency: Rarely Review of Systems - Review of Systems Review Of Systems: ROS reveals no pertinent complaints other than HPI. ED EXAM, GENERAL - Physical Exam Exam: See Below (See dictation) Course - Vital Signs Last Recorded V/S: Last Vital Signs Temp 36.7 C 02/12/17 09:23 Pulse 66 02/12/17 09:23 Resp 18 02/12/17 09:23 BP 101/68 02/12/17 09:23 Pulse Ox 98 02/12/17 09:23 - Orders/Labs/Meds Orders: Active Orders 24 hr Category Date Time Status Ankle Min 3V Lt [CR] Stat Exams 02/12/17 09:27 Taken Foot 2V Lt [CR] Stat Exams 02/12/17 09:27 Taken DME for Discharge [COMM] Stat Oth 02/12/17 10:17 Ordered Departure - Departure Time of Disposition: 10:19 Disposition: Home, Self-Care 01 Condition: Good Clinical Impression: Left ankle injury Qualifiers: Encounter type: initial encounter Qualified Code(s): S99.912A - Unspecified injury of left ankle, initial encounter - Discharge Information Referrals: Shilpa Beltran DO [Primary Care Provider] - Forms: ED Department Discharge Additional Instructions: The following information is given to patients seen in the emergency department who are being discharged to home. This information is to outline your options for follow-up care. We provide all patients seen in our emergency department with a follow-up referral. The need for follow-up, as well as the timing and circumstances, are variable depending upon the specifics of your emergency department visit. If you don't have a primary care physician on staff, we will provide you with a referral. We always advise you to contact your personal physician following an emergency department visit to inform them of the circumstance of the visit and for follow-up with them and/or the need for any referrals to a consulting specialist. The emergency department will also refer you to a specialist when appropriate. This referral assures that you have the opportunity for followup care with a specialist. All of these measure are taken in an effort to provide you with optimal care, which includes your followup. Under all circumstances we always encourage you to contact your private physician who remains a resource for coordinating your care. When calling for followup care, please make the office aware that this follow-up is from your recent emergency room visit. If for any reason you are refused follow-up, please contact the [facility] emergency department at and ask to speak to the emergency department charge nurse. [facility] Specialty Care--Orthopedic clinic Professional Building [address] [place] [phone] [place], [place] [address] Ice and elevate the ankle and foot do not weight-bear until you're followed up by the orthopedic clinic. Use crutches at all times. Use air cast at all times but remove at bedtime/sleep time. Please call the clinic tomorrow for follow-up appointment. Please use [id number] Tylenol or ibuprofen for pain. Also follow-up with your provider at [facility] [address] for your complaints in the next few days for reevaluation and further care as indicated. Return to ER as needed and as discussed - My Orders Last 24 Hours: My Active Orders 02/12/17 09:27 Ankle Min 3V Lt [CR] Stat Foot 2V Lt [CR] Stat 02/12/17 10:17 DME for Discharge [COMM] Stat - Assessment/Plan Last 24 Hours: My Active Orders 02/12/17 09:27 Ankle Min 3V Lt [CR] Stat Foot 2V Lt [CR] Stat 02/12/17 10:17 DME for Discharge [COMM] Stat
[2017-02-12 10:51] VITALS: BP 115/70
--- NOTE | 2017-02-13 11:23 | CR ---
EXAM DATE: 02/12/17 PATIENT'S AGE: 26 Patient: MAXIMILIANO ACUÑA Facility: [place], [place] Site . Site : 1990 Study: XRay Extremity Left ANKLE [id number]/8/2017 9:47:56 AM Ordering Physician: Doctor Mathis Final Report: INDICATION: Injury. Pain. FINDINGS: Three views of the left ankle show no evidence of acute fracture or dislocation. No other bony or soft tissue abnormalities identified. Dictated by Aniceto Easton MD @ 02/12/2017 10:12:54 AM Dictated by: Aniceto Easton MD @ 02/12/2017 10:13:05 (Electronic Signature) Report Signed by Proxy. ABIODUN
--- NOTE | 2017-02-13 11:24 | CR ---
EXAM DATE: 02/12/17 PATIENT'S AGE: 26 Patient: MAXIMILIANO ACUÑA Facility: [place], [place] Site . Site : 1991 Study: XRay Extremity Left FOOT [id number] 9:48:19 AM Ordering Physician: Doctor Mathis Final Report: INDICATION: Pain. Trauma. FINDINGS: Two views of the left foot show no evidence of acute fracture or dislocation. No other bony or soft tissue abnormalities identified. Dictated by Aniceto Easton MD @ 02/12/2017 10:11:52 AM Dictated by: Aniceto Easton MD @ 02/12/2017 10:12:03 (Electronic Signature) Report Signed by Proxy. ABIODUN
== END 2017-02-12 10:47 | disposition home or self-care (01) ==
LOC: MW.ED 09:15
DX: S93.402A Sprain of unspecified ligament of left ankle, initial encounter (principal); K21.9 Gastro-esophageal reflux disease without esophagitis; Z88.1 Allergy status to other antibiotic agents; Z79.899 Other long term (current) drug therapy; X50.0XXA Overexertion from strenuous movement or load, initial encounter
CPT/HCPCS: 73610-26-LT; 73610-LT; 73620-26-LT; 73620-LT; 99283

== ENCOUNTER 2022-12-03 17:16 | Emergency (ER) | payer BC, MEDICAID ==
[2022-12-03] MEDS ORDERED: Sodium Chloride 0.9% 1,000 ML IV ONE (17:28)
[2022-12-03] MEDS ORDERED: Ondansetron 4 MG/2 ML SDV IVPUSH ONE (17:40)
[2022-12-03] MEDS ORDERED: Ketorolac 30 MG/ML SDV IVPUSH ONE (17:41)
[2022-12-03] MEDS ORDERED: Acetaminophen/HYDROcodone 325-5 MG Tab PO ONE (17:41)
[2022-12-03 17:48] LABS: BASOPHILS PERCENT AUTO 0.1 % (0.0-1.5); EOSINOPHILS PERCENT AUTO 0.3 % (0.0-7.0); HEMOGLOBIN 13.2 g/dL (12.0-16.0); LYMPHOCYTES ABSOLUTE AUTO 1.3 K/uL (0.6-2.4); LYMPHOCYTES PERCENT AUTO 9.4 % (16.0-40.0); MEAN CORPUSCULAR HGB CONC 34.7 g/dL (31.0-37.0); MEAN CORPUSCULAR VOLUME 86.4 fL (80.0-98.0); MONOCYTES ABSOLUTE AUTO 0.8 K/uL (0.0-0.8); MONOCYTES PERCENT AUTO 5.4 % (0.0-15.0); NEUTROPHILS PERCENT AUTO 84.8 % (48.0-80.0); NRBC ABSOLUTE 0 K/uL; PLATELET COUNT,PLT 239 K/uL (150-400); WHITE BLOOD CELL COUNT,WBC 14.12 K/uL (4.0-11.0)
[2022-12-03 17:48] LABS: APPEARANCE,URINE SLT CLOUDY; COLOR,URINE YELLOW; GLUCOSE,URINE NEGATIVE (NEGATIVE); KETONES,URINE NEGATIVE (NEGATIVE); LEUKOCYTE ESTERASE,URINE TRACE (NEGATIVE); NITRITE,URINE NEGATIVE (NEGATIVE); OCCULT BLOOD,URINE SMALL (NEGATIVE); PH,URINE 5.5 (5.0-8.0); PROTEIN,URINE 30 mg/dL (NEGATIVE); UROBILINOGEN,URINE 0.2 EU/dL (<2.0)
[2022-12-03 17:57] LABS: BILIRUBIN,URINE SMALL (NEGATIVE)
[2022-12-03 18:05] LABS: BACTERIA,URINE 1+ (NEGATIVE); EPITHELIAL CELLS,URINE FEW (NONE-FEW); MUCUS,URINE MANY (NONE-MOD)
[2022-12-03 18:08] LABS: A/G RATIO 0.8 (0.9-1.6); ALBUMIN 3.4 g/dL (3.4-5.0); BILIRUBIN TOTAL 1.5 mg/dL (0.2-1.0); CALCIUM 9.1 mg/dL (8.5-10.1); CARBON DIOXIDE,CO2 30.4 mmol/L (21.0-32.0); CREATININE 1.1 mg/dL (0.6-1.0); EST CRCL DRUG DOSING (CG) 61.3 mL/min; POTASSIUM,K 3.3 mmol/L (3.5-5.1); PROTEIN TOTAL,TP 7.5 g/dL (6.4-8.2)
[2022-12-03] MEDS ORDERED: cefTRIAXone 1 GM in Sodium Chloride 0.9% 50 ML IV ONE (18:17)
[2022-12-03] MEDS ORDERED: Azithromycin 500 MG in Sodium Chloride 0.9% 250 ML IV ONE (18:17)
[2022-12-03 19:57] VITALS: BP 120/64; PULSE 118
== END 2022-12-03 19:58 | disposition home or self-care (01) ==
LOC: MW.ED 17:16
DX: J18.9 Pneumonia, unspecified organism (principal); Z20.822 Contact with and (suspected) exposure to COVID-19; Z88.0 Allergy status to penicillin; Z88.1 Allergy status to other antibiotic agents; Z79.899 Other long term (current) drug therapy
CPT/HCPCS: 36415; 71045; 80053; 81001; 84703; 85025; 85379; 87635; 96365; 96367; 96375; 99284; A9270; J0456; J0696; J1885; J2405; J3490; J7030; J7050; 93010; U0002

== ENCOUNTER 2023-01-18 11:39 | Emergency (ER) | payer SELFPAY ==
[2023-01-18 12:30] LABS: APPEARANCE,URINE CLEAR; BILIRUBIN,URINE NEGATIVE (NEGATIVE); COLOR,URINE YELLOW; GLUCOSE,URINE NEGATIVE (NEGATIVE); KETONES,URINE NEGATIVE (NEGATIVE); LEUKOCYTE ESTERASE,URINE NEGATIVE (NEGATIVE); NITRITE,URINE NEGATIVE (NEGATIVE); OCCULT BLOOD,URINE NEGATIVE (NEGATIVE); PROTEIN,URINE NEGATIVE (NEGATIVE); UROBILINOGEN,URINE 0.2 EU/dL (<2.0)
[2023-01-18] MEDS ORDERED: Ondansetron 4 MG Tab.DIS PO STA (13:08)
[2023-01-18] MEDS ORDERED: Aluminum Hydroxide/Magnesium Hydroxide/Simethicone XS Susp 30 ML Cup PO STA (13:09)
[2023-01-18 13:18] LABS: INFLUENZA A NAA NEGATIVE (NEGATIVE); INFLUENZA B NAA NEGATIVE (NEGATIVE)
[2023-01-18] MEDS ORDERED: Acetaminophen 500 MG Tab PO STA (13:28)
[2023-01-18 13:29] LABS: CORONAVIRUS COVID-19 NAA NEGATIVE (NEGATIVE)
[2023-01-18] MEDS ORDERED: Ibuprofen 800 MG Tab PO STA (13:29)
[2023-01-18] MEDS ORDERED: Sodium Chloride 0.9% 1,000 ML IV STA (13:49)
[2023-01-18] MEDS ORDERED: Ketorolac 30 MG/ML SDV IVPUSH STA (13:49)
[2023-01-18] MEDS ORDERED: Sodium Chloride 0.9% 10 ML Syringe FLUSH PRN (13:49)
[2023-01-18] MEDS ORDERED: Sodium Chloride 0.9% 2.5 ML Syringe FLUSH PRN (13:49)
[2023-01-18 14:24] LABS: BASOPHILS PERCENT AUTO 0.3 % (0.0-1.5); EOSINOPHILS PERCENT AUTO 0.3 % (0.0-7.0); HEMATOCRIT 42.7 % (36.0-46.0); LYMPHOCYTES ABSOLUTE AUTO 2.4 K/uL (0.6-2.4); LYMPHOCYTES PERCENT AUTO 34.8 % (16.0-40.0); MEAN CORPUSCULAR HEMOGLOBIN 30.9 pg (27.0-32.0); MEAN CORPUSCULAR HGB CONC 35.1 g/dL (31.0-37.0); MEAN CORPUSCULAR VOLUME 87.9 fL (80.0-98.0); MONOCYTES ABSOLUTE AUTO 0.3 K/uL (0.0-0.8); MONOCYTES PERCENT AUTO 4.9 % (0.0-15.0); NEUTROPHILS ABSOLUTE AUTO 4.2 K/uL (1.4-5.7); NEUTROPHILS PERCENT AUTO 59.7 % (48.0-80.0); NRBC ABSOLUTE 0 K/uL; PLATELET COUNT,PLT 293 K/uL (150-400); RED BLOOD CELL COUNT 4.86 M/uL (4.30-5.90); WHITE BLOOD CELL COUNT,WBC 6.98 K/uL (4.0-11.0)
[2023-01-18 14:43] LABS: A/G RATIO 1.2 (0.9-1.6); ALBUMIN 4.3 g/dL (3.4-5.0); BILIRUBIN TOTAL 0.6 mg/dL (0.2-1.0); CALCIUM 8.9 mg/dL (8.5-10.1); CARBON DIOXIDE,CO2 29.3 mmol/L (21.0-32.0); CREATININE 0.8 mg/dL (0.6-1.0); EST CRCL DRUG DOSING (CG) 87.99 mL/min; POTASSIUM,K 4.1 mmol/L (3.5-5.1)
[2023-01-18] MEDS ORDERED: Prochlorperazine 10 MG/2 ML SDV IVPUSH STA (15:13)
[2023-01-18] MEDS ORDERED: diphenhydrAMINE 50 MG/ML SDV IVPUSH STA (15:13)
[2023-01-18] MEDS ORDERED: Iopamidol 755 MG/ML 500 ML Multipack Bottle IVPUSH STA (15:31)
[2023-01-18 17:21] VITALS: BP 119/63; PULSE 84
== END 2023-01-18 17:21 | disposition home or self-care (01) ==
LOC: MW.ED 11:39
DX: I87.8 Other specified disorders of veins (principal); J45.909 Unspecified asthma, uncomplicated; Z88.0 Allergy status to penicillin; Z88.1 Allergy status to other antibiotic agents; Z88.8 Allergy status to other drugs, medicaments and biological substances; Z20.822 Contact with and (suspected) exposure to COVID-19
CPT/HCPCS: 0240U; 36415; 74177; 80053; 81003; 81025; 83690; 85025; 93005; 96361; 96374; 96375; 99285; A9270; J0780; J1200; J1885; J3490; J7030; Q9967; 93010; 99284

== ENCOUNTER 2023-01-23 10:59 | Emergency (ER) | payer SELFPAY ==
[2023-01-23] MEDS ORDERED: Ketorolac 30 MG/ML SDV IM ONE (11:21)
[2023-01-23] MEDS ORDERED: Ondansetron 4 MG/2 ML SDV IVPUSH ONE (11:21)
[2023-01-23] MEDS ORDERED: Ondansetron 4 MG Tab.DIS PO ONE (11:31)
[2023-01-23 11:47] LABS: BASOPHILS PERCENT AUTO 0.2 % (0.0-1.5); EOSINOPHILS PERCENT AUTO 0.2 % (0.0-7.0); HEMATOCRIT 40.8 % (36.0-46.0); HEMOGLOBIN 14.2 g/dL (12.0-16.0); LYMPHOCYTES ABSOLUTE AUTO 1.9 K/uL (0.6-2.4); LYMPHOCYTES PERCENT AUTO 33.9 % (16.0-40.0); MEAN CORPUSCULAR HEMOGLOBIN 30.3 pg (27.0-32.0); MEAN CORPUSCULAR HGB CONC 34.8 g/dL (31.0-37.0); MONOCYTES ABSOLUTE AUTO 0.3 K/uL (0.0-0.8); MONOCYTES PERCENT AUTO 4.5 % (0.0-15.0); NEUTROPHILS ABSOLUTE AUTO 3.4 K/uL (1.4-5.7); NEUTROPHILS PERCENT AUTO 61.2 % (48.0-80.0); NRBC ABSOLUTE 0 K/uL; PLATELET COUNT,PLT 268 K/uL (150-400); RED BLOOD CELL COUNT 4.69 M/uL (4.30-5.90); WHITE BLOOD CELL COUNT,WBC 5.58 K/uL (4.0-11.0)
[2023-01-23 12:13] LABS: A/G RATIO 1.2 (0.9-1.6); ALBUMIN 4.1 g/dL (3.4-5.0); BILIRUBIN TOTAL 0.8 mg/dL (0.2-1.0); CALCIUM 8.6 mg/dL (8.5-10.1); CARBON DIOXIDE,CO2 26.9 mmol/L (21.0-32.0); CREATININE 0.9 mg/dL (0.6-1.0); EST CRCL DRUG DOSING (CG) 78.21 mL/min; POTASSIUM,K 4.1 mmol/L (3.5-5.1); PROTEIN TOTAL,TP 7.6 g/dL (6.4-8.2)
[2023-01-23] MEDS ORDERED: traMADol 50 MG Tab PO ONE (13:29)
[2023-01-23 13:50] LABS: APPEARANCE,URINE CLEAR; BILIRUBIN,URINE NEGATIVE (NEGATIVE); COLOR,URINE YELLOW; GLUCOSE,URINE NEGATIVE (NEGATIVE); KETONES,URINE TRACE mg/dL (NEGATIVE); LEUKOCYTE ESTERASE,URINE NEGATIVE (NEGATIVE); NITRITE,URINE NEGATIVE (NEGATIVE); OCCULT BLOOD,URINE NEGATIVE (NEGATIVE); PROTEIN,URINE NEGATIVE (NEGATIVE); UROBILINOGEN,URINE 0.2 EU/dL (<2.0)
[2023-01-23 14:33] VITALS: BP 120/76; PULSE 69
== END 2023-01-23 14:28 | disposition home or self-care (01) ==
LOC: MW.ED 10:59
DX: K59.00 Constipation, unspecified (principal); J45.909 Unspecified asthma, uncomplicated; Z88.8 Allergy status to other drugs, medicaments and biological substances; Z88.0 Allergy status to penicillin; Z88.1 Allergy status to other antibiotic agents; Z79.899 Other long term (current) drug therapy
CPT/HCPCS: 36415; 74176; 80053; 81003; 83690; 85025; 96372; 99284; A9270; J1885; 99283

== ENCOUNTER 2023-02-09 10:38 | Emergency (ER) | payer MEDICAID ==
[2023-02-09] MEDS ORDERED: Acetaminophen/HYDROcodone 325-5 MG Tab PO ONE (12:16)
[2023-02-09] MEDS ORDERED: Sodium Chloride 0.9% 2.5 ML Syringe FLUSH PRN (12:16)
[2023-02-09] MEDS ORDERED: Sodium Chloride 0.9% 10 ML Syringe FLUSH PRN (12:16)
[2023-02-09 13:13] LABS: CANDIDA DNA PROBE NEGATIVE (NEGATIVE); GARDNERELLA DNA PROBE NEGATIVE (NEGATIVE); TRICHOMONAS DNA PROBE NEGATIVE (NEGATIVE)
[2023-02-09 13:51] LABS: APPEARANCE,URINE SLT CLOUDY; BILIRUBIN,URINE NEGATIVE (NEGATIVE); COLOR,URINE YELLOW; GLUCOSE,URINE NEGATIVE (NEGATIVE); KETONES,URINE NEGATIVE (NEGATIVE); LEUKOCYTE ESTERASE,URINE NEGATIVE (NEGATIVE); NITRITE,URINE NEGATIVE (NEGATIVE); OCCULT BLOOD,URINE MODERATE (NEGATIVE); PH,URINE 5.5 (5.0-8.0); PROTEIN,URINE NEGATIVE (NEGATIVE); UROBILINOGEN,URINE 0.2 EU/dL (<2.0)
[2023-02-09 13:53] LABS: C. TRACHOMATIS BY PCR NOT DETECTED; N. GONORRHOEAE BY PCR NOT DETECTED
[2023-02-09 14:05] LABS: BACTERIA,URINE FEW (NEGATIVE); EPITHELIAL CELLS,URINE FEW (NONE-FEW); RBC,URINE 0-2 (0-2/HPF); WBC,URINE 0-2 (0-5/HPF)
[2023-02-09 17:17] VITALS: BP 105/52; PULSE 92
== END 2023-02-09 15:55 | disposition home or self-care (01) ==
LOC: MW.ED 10:38
DX: O20.0 Threatened abortion (principal); Z3A.12 12 weeks gestation of pregnancy; Z88.0 Allergy status to penicillin; Z88.8 Allergy status to other drugs, medicaments and biological substances; Z79.899 Other long term (current) drug therapy
CPT/HCPCS: 36415; 76801; 81001; 84702; 86850; 86900; 86901; 87480; 87491; 87510; 87591; 87660; 99284; A9270; J3490; 99283

== ENCOUNTER 2023-02-10 20:59 | Emergency (ER) | payer MEDICAID ==
[2023-02-10 22:38] LABS: BASOPHILS ABSOLUTE AUTO 0.05 K/uL (0.00-0.20); BASOPHILS PERCENT AUTO 0.4 % (0.0-1.0); EOSINOPHILS ABSOLUTE AUTO 0.07 K/uL (0.00-0.45); EOSINOPHILS PERCENT AUTO 0.6 % (0.0-6.0); HEMATOCRIT 42.7 % (37.0-47.0); HEMOGLOBIN 15.1 g/dL (12.0-16.0); LYMPHOCYTES PERCENT AUTO 23.5 % (24.0-44.0); MEAN CORPUSCULAR HEMOGLOBIN 30.5 pg (28.0-32.0); MEAN CORPUSCULAR HGB CONC 35.4 g/dL (32.0-36.0); MEAN CORPUSCULAR VOLUME 86.3 fL (83.0-99.0); MEAN PLATELET VOLUME 8.9 fL (9.4-12.3); MONOCYTES ABSOLUTE AUTO 0.87 K/uL (0.00-0.80); MONOCYTES PERCENT AUTO 7.3 % (0.0-8.0); NEUTROPHILS ABSOLUTE AUTO 8.1 K/uL (1.8-7.7); NEUTROPHILS PERCENT AUTO 67.9 % (41.0-71.0); PLATELET COUNT,PLT 305 K/uL (150-400); RED BLOOD CELL COUNT 4.95 M/uL (4.10-5.30); WHITE BLOOD CELL COUNT,WBC 11.92 K/uL (3.9-11.3)
[2023-02-10 23:24] LABS: A/G RATIO 1.2 (0.9-1.6); ALANINE AMINOTRANSFERASE,ALT 16 IU/L (14-63); ALBUMIN 4.3 g/dL (3.4-5.0); ALKALINE PHOSPHATASE 82 U/L (46-116); ASPARTATE AMNIOTRANSFERASE,AST 12 IU/L (15-37); BILIRUBIN TOTAL 0.6 mg/dL (0.2-1.0); BLOOD UREA NITROGEN,BUN 17 mg/dL (7.0-18.0); CALCIUM 9.4 mg/dL (8.5-10.1); CARBON DIOXIDE,CO2 26.6 mmol/L (21.0-32.0); CHLORIDE,CL 102 mmol/L (98-107); GLUCOSE RANDOM 87 mg/dL (74-106); POTASSIUM,K 3.9 mmol/L (3.5-5.1); SODIUM,NA 138 mmol/L (136-145)
[2023-02-10 23:40] LABS: ESTIMATED GFR 77 mL/min (>60)
[2023-02-10] MEDS ORDERED: Acetaminophen 325 MG Tab PO ONE (23:54)
[2023-02-11] MEDS ORDERED: Ondansetron 4 MG Tab PO ONE (00:15)
[2023-02-11 01:18] VITALS: BP 104/57; PULSE 88
== END 2023-02-11 01:17 | disposition home or self-care (01) ==
LOC: MW.ED 20:59
DX: O20.0 Threatened abortion (principal); Z88.8 Allergy status to other drugs, medicaments and biological substances; Z88.0 Allergy status to penicillin; Z88.1 Allergy status to other antibiotic agents
CPT/HCPCS: 36415; 80053; 84702; 85025; 99284; A9270; 99283

== ENCOUNTER 2023-04-20 09:52 | Emergency (ER) | payer SELFPAY ==
[2023-04-20 11:10] LABS: CORONAVIRUS COVID-19 NAA NEGATIVE (NEGATIVE); INFLUENZA A NAA NEGATIVE (NEGATIVE); INFLUENZA B NAA NEGATIVE (NEGATIVE); RESPIRATORY SYNCYTIAL VIR NAA NEGATIVE (NEGATIVE)
[2023-04-20 11:35] VITALS: BP 114/81; PULSE 96
== END 2023-04-20 11:34 | disposition home or self-care (01) ==
LOC: MW.ED 09:52
DX: J06.9 Acute upper respiratory infection, unspecified (principal); J45.909 Unspecified asthma, uncomplicated; Z20.822 Contact with and (suspected) exposure to COVID-19; Z88.1 Allergy status to other antibiotic agents; Z79.899 Other long term (current) drug therapy
CPT/HCPCS: 0241U; 87651; 99283

== ENCOUNTER 2023-06-12 11:29 | Emergency (ER) | payer SELFPAY ==
[2023-06-12 12:03] LABS: BASOPHILS ABSOLUTE AUTO 0.02 K/uL (0.00-0.20); BASOPHILS PERCENT AUTO 0.3 % (0.0-1.0); EOSINOPHILS ABSOLUTE AUTO 0.05 K/uL (0.00-0.45); EOSINOPHILS PERCENT AUTO 0.7 % (0.0-6.0); HEMATOCRIT 39.6 % (37.0-47.0); HEMOGLOBIN 13.9 g/dL (12.0-16.0); IMMATURE GRAN ABSOLUTE AUTO 0.01 K/uL (0.00-0.05); IMMATURE GRAN PERCENT AUTO 0.1 % (0.0-0.4); LYMPHOCYTES ABSOLUTE AUTO 1.23 K/uL (1.00-4.80); LYMPHOCYTES PERCENT AUTO 17.8 % (24.0-44.0); MEAN CORPUSCULAR HEMOGLOBIN 30.5 pg (28.0-32.0); MEAN CORPUSCULAR HGB CONC 35.1 g/dL (32.0-36.0); MEAN CORPUSCULAR VOLUME 86.8 fL (83.0-99.0); MEAN PLATELET VOLUME 9.4 fL (9.4-12.3); MONOCYTES ABSOLUTE AUTO 0.35 K/uL (0.00-0.80); MONOCYTES PERCENT AUTO 5.1 % (0.0-8.0); NEUTROPHILS ABSOLUTE AUTO 5.24 K/uL (1.80-7.70); PLATELET COUNT,PLT 212 K/uL (150-400); RED BLOOD CELL COUNT 4.56 M/uL (4.10-5.30)
[2023-06-12 12:39] LABS: A/G RATIO 0.9 (0.9-1.6); ALANINE AMINOTRANSFERASE,ALT 21 IU/L (14-63); ALBUMIN 3.6 g/dL (3.4-5.0); ALKALINE PHOSPHATASE 81 U/L (46-116); ASPARTATE AMNIOTRANSFERASE,AST 14 IU/L (15-37); BILIRUBIN TOTAL 0.6 mg/dL (0.2-1.0); BLOOD UREA NITROGEN,BUN 8 mg/dL (7.0-18.0); CALCIUM 8.8 mg/dL (8.5-10.1); CHLORIDE,CL 102 mmol/L (98-107); CREATININE 0.8 mg/dL (0.6-1.0); GLUCOSE RANDOM 102 mg/dL (74-106); POTASSIUM,K 3.7 mmol/L (3.5-5.1); PROTEIN TOTAL,TP 7.5 g/dL (6.4-8.2); SODIUM,NA 138 mmol/L (136-145)
[2023-06-12 12:40] LABS: ESTIMATED GFR 101 mL/min (>60)
[2023-06-12 13:02] VITALS: BP 141/73
[2023-06-12 13:50] LABS: APPEARANCE,URINE CLEAR; BILIRUBIN,URINE NEGATIVE (NEGATIVE); COLOR,URINE YELLOW; GLUCOSE,URINE NEGATIVE (NEGATIVE); KETONES,URINE NEGATIVE (NEGATIVE); LEUKOCYTE ESTERASE,URINE NEGATIVE (NEGATIVE); NITRITE,URINE NEGATIVE (NEGATIVE); OCCULT BLOOD,URINE NEGATIVE (NEGATIVE); PROTEIN,URINE NEGATIVE (NEGATIVE); UROBILINOGEN,URINE 0.2 EU/dL (<2.0)
[2023-06-12 14:00] LABS: BACTERIA,URINE FEW (NEGATIVE); EPITHELIAL CELLS,URINE FEW (NONE-FEW); MUCUS,URINE LIGHT (NONE-MOD); RBC,URINE 0-1 (0-2/HPF); WBC,URINE 0-1 (0-5/HPF)
[2023-06-12 14:54] VITALS: PULSE 92
[2023-06-12 15:33] LABS: CORONAVIRUS COVID-19 NAA NEGATIVE (NEGATIVE); INFLUENZA A NAA NEGATIVE (NEGATIVE); INFLUENZA B NAA NEGATIVE (NEGATIVE); RESPIRATORY SYNCYTIAL VIR NAA NEGATIVE (NEGATIVE)
== END 2023-06-12 14:54 | disposition home or self-care (01) ==
LOC: MW.ED 11:29
DX: O98.511 Other viral diseases complicating pregnancy, first trimester (principal); B34.9 Viral infection, unspecified; O23.41 Unspecified infection of urinary tract in pregnancy, first trimester; O99.511 Diseases of the respiratory system complicating pregnancy, first trimester; J45.909 Unspecified asthma, uncomplicated; Z79.899 Other long term (current) drug therapy; Z88.1 Allergy status to other antibiotic agents; Z88.8 Allergy status to other drugs, medicaments and biological substances; Z3A.01 Less than 8 weeks gestation of pregnancy
CPT/HCPCS: 0241U; 36415; 80053; 81001; 84484; 85025; 93005; 99284; 99283

== ENCOUNTER 2023-06-24 16:33 | Emergency (ER) | payer MEDICAID ==
[2023-06-24 17:41] LABS: APPEARANCE,URINE SLT CLOUDY; BILIRUBIN,URINE NEGATIVE (NEGATIVE); COLOR,URINE YELLOW; GLUCOSE,URINE NEGATIVE (NEGATIVE); KETONES,URINE NEGATIVE (NEGATIVE); LEUKOCYTE ESTERASE,URINE NEGATIVE (NEGATIVE); NITRITE,URINE NEGATIVE (NEGATIVE); OCCULT BLOOD,URINE NEGATIVE (NEGATIVE); PROTEIN,URINE NEGATIVE (NEGATIVE); UROBILINOGEN,URINE 0.2 EU/dL (<2.0)
[2023-06-24 18:08] LABS: BASOPHILS ABSOLUTE AUTO 0.04 K/uL (0.00-0.20); BASOPHILS PERCENT AUTO 0.4 % (0.0-1.0); EOSINOPHILS ABSOLUTE AUTO 0.04 K/uL (0.00-0.45); EOSINOPHILS PERCENT AUTO 0.4 % (0.0-6.0); HEMATOCRIT 38.5 % (37.0-47.0); IMMATURE GRAN ABSOLUTE AUTO 0.02 K/uL (0.00-0.05); IMMATURE GRAN PERCENT AUTO 0.2 % (0.0-0.4); LYMPHOCYTES ABSOLUTE AUTO 2.37 K/uL (1.00-4.80); LYMPHOCYTES PERCENT AUTO 24.8 % (24.0-44.0); MEAN CORPUSCULAR HEMOGLOBIN 30.9 pg (28.0-32.0); MEAN CORPUSCULAR HGB CONC 36.4 g/dL (32.0-36.0); MEAN PLATELET VOLUME 8.8 fL (9.4-12.3); MONOCYTES ABSOLUTE AUTO 0.52 K/uL (0.00-0.80); MONOCYTES PERCENT AUTO 5.4 % (0.0-8.0); NEUTROPHILS ABSOLUTE AUTO 6.58 K/uL (1.80-7.70); NEUTROPHILS PERCENT AUTO 68.8 % (41.0-71.0); PLATELET COUNT,PLT 305 K/uL (150-400); RED BLOOD CELL COUNT 4.53 M/uL (4.10-5.30); WHITE BLOOD CELL COUNT,WBC 9.57 K/uL (3.9-11.3)
[2023-06-24] MEDS: Sodium Chloride 0.9% 1,000 ML IV STA (18:51)
[2023-06-24] MEDS: Acetaminophen 500 MG Tab PO ONE (18:51)
[2023-06-24 18:53] LABS: A/G RATIO 1.1 (0.9-1.6); ALBUMIN 3.9 g/dL (3.4-5.0); BILIRUBIN TOTAL 0.5 mg/dL (0.2-1.0); CALCIUM 9.2 mg/dL (8.5-10.1); CARBON DIOXIDE,CO2 26.8 mmol/L (21.0-32.0); CREATININE 0.8 mg/dL (0.6-1.0); EST CRCL DRUG DOSING (CG) 87.99 mL/min; POTASSIUM,K 3.8 mmol/L (3.5-5.1); PROTEIN TOTAL,TP 7.4 g/dL (6.4-8.2)
[2023-06-24 22:47] LABS: CORONAVIRUS COVID-19 NAA NEGATIVE (NEGATIVE); INFLUENZA A NAA NEGATIVE (NEGATIVE); INFLUENZA B NAA NEGATIVE (NEGATIVE); RESPIRATORY SYNCYTIAL VIR NAA NEGATIVE (NEGATIVE)
[2023-06-24] MEDS: Morphine 2 MG/ML SYRINGE IVPUSH ONE (23:12)
[2023-06-24] MEDS: Ondansetron 4 MG/2 ML SDV IVPUSH ONE (23:12)
[2023-06-25] MEDS: Sodium Chloride 0.9% 1,000 ML IV ONE (00:22)
[2023-06-25] MEDS: Morphine 4 MG/ML Syringe IVPUSH ONE (01:55)
[2023-06-25 02:47] VITALS: BP 122/84; PULSE 75
== END 2023-06-25 02:47 | disposition home or self-care (01) ==
LOC: MW.ED 16:33
DX: O36.80X0 Pregnancy with inconclusive fetal viability, not applicable or unspecified (principal); Z3A.01 Less than 8 weeks gestation of pregnancy; R10.32 Left lower quadrant pain; J45.909 Unspecified asthma, uncomplicated; Z88.0 Allergy status to penicillin; Z88.1 Allergy status to other antibiotic agents; Z79.899 Other long term (current) drug therapy
CPT/HCPCS: 0241U; 36415; 76705; 76775; 76817; 80053; 81003; 83690; 84702; 85025; 86900; 86901; 96374; 96375; 96376; 99284; A9270; J2270; J2405; J7030

== ENCOUNTER 2023-08-15 18:46 | Emergency (ER) | payer MEDICAID ==
[2023-08-15] MEDS: Sodium Chloride 0.9% 1,000 ML IV ONE (19:55)
[2023-08-15 20:02] LABS: BASOPHILS ABSOLUTE AUTO 0.04 K/uL (0.00-0.20); BASOPHILS PERCENT AUTO 0.4 % (0.0-1.0); EOSINOPHILS ABSOLUTE AUTO 0.06 K/uL (0.00-0.45); EOSINOPHILS PERCENT AUTO 0.6 % (0.0-6.0); HEMATOCRIT 37.7 % (37.0-47.0); IMMATURE GRAN ABSOLUTE AUTO 0.03 K/uL (0.00-0.05); IMMATURE GRAN PERCENT AUTO 0.3 % (0.0-0.4); LYMPHOCYTES ABSOLUTE AUTO 1.97 K/uL (1.00-4.80); LYMPHOCYTES PERCENT AUTO 20.1 % (24.0-44.0); MEAN CORPUSCULAR HEMOGLOBIN 31.1 pg (28.0-32.0); MEAN CORPUSCULAR HGB CONC 37.1 g/dL (32.0-36.0); MEAN CORPUSCULAR VOLUME 83.8 fL (83.0-99.0); MEAN PLATELET VOLUME 8.8 fL (9.4-12.3); MONOCYTES ABSOLUTE AUTO 0.46 K/uL (0.00-0.80); MONOCYTES PERCENT AUTO 4.7 % (0.0-8.0); NEUTROPHILS ABSOLUTE AUTO 7.24 K/uL (1.80-7.70); NEUTROPHILS PERCENT AUTO 73.9 % (41.0-71.0); PLATELET COUNT,PLT 244 K/uL (150-400)
[2023-08-15] MEDS: LORazepam 0.5 MG Tab PO ONE (20:17)
[2023-08-15] MEDS: LORazepam 2 MG/ML Syringe IVPUSH ONE (20:17)
[2023-08-15] MEDS: ClonazePAM 0.5 MG Tab PO ONE (20:17)
[2023-08-15 20:21] LABS: A/G RATIO 0.9 (0.9-1.6); ALBUMIN 3.5 g/dL (3.4-5.0); BILIRUBIN TOTAL 0.4 mg/dL (0.2-1.0); CALCIUM 9.3 mg/dL (8.5-10.1); CREATININE 0.7 mg/dL (0.6-1.0); EST CRCL DRUG DOSING (CG) 104.78 mL/min; POTASSIUM,K 3.8 mmol/L (3.5-5.1); PROTEIN TOTAL,TP 7.4 g/dL (6.4-8.2)
[2023-08-15] MEDS: Metoclopramide 10 MG/2 ML SDV IVPUSH ONE (20:30)
[2023-08-15] MEDS: diphenhydrAMINE 50 MG/ML SDV IVPUSH ONE (20:33)
[2023-08-15 21:29] LABS: APPEARANCE,URINE CLEAR; BILIRUBIN,URINE NEGATIVE (NEGATIVE); COLOR,URINE YELLOW; GLUCOSE,URINE NEGATIVE (NEGATIVE); KETONES,URINE NEGATIVE (NEGATIVE); LEUKOCYTE ESTERASE,URINE NEGATIVE (NEGATIVE); NITRITE,URINE NEGATIVE (NEGATIVE); OCCULT BLOOD,URINE NEGATIVE (NEGATIVE); PROTEIN,URINE NEGATIVE (NEGATIVE); UROBILINOGEN,URINE 0.2 EU/dL (<2.0)
[2023-08-15 22:09] VITALS: BP 132/72; PULSE 94
== END 2023-08-15 21:58 | disposition home or self-care (01) ==
LOC: MW.ED 18:46
DX: Z76.0 Encounter for issue of repeat prescription (principal); J45.909 Unspecified asthma, uncomplicated; K21.9 Gastro-esophageal reflux disease without esophagitis; Z79.899 Other long term (current) drug therapy; Z88.8 Allergy status to other drugs, medicaments and biological substances; Z88.0 Allergy status to penicillin; Z88.1 Allergy status to other antibiotic agents
CPT/HCPCS: 36415; 80053; 81003; 85025; 96361; 96374; 99282; A9270; J2765; J7030; 99284

== ENCOUNTER 2023-08-16 18:36 | Emergency (ER) | payer MEDICAID ==
[2023-08-16 20:41] VITALS: BP 120/64; PULSE 88
== END 2023-08-16 20:40 | disposition home or self-care (01) ==
LOC: MW.ED 18:36
DX: Z76.0 Encounter for issue of repeat prescription (principal); J45.909 Unspecified asthma, uncomplicated; K21.9 Gastro-esophageal reflux disease without esophagitis; Z86.16 Personal history of COVID-19; Z79.899 Other long term (current) drug therapy; Z88.8 Allergy status to other drugs, medicaments and biological substances; Z88.0 Allergy status to penicillin; Z88.5 Allergy status to narcotic agent
CPT/HCPCS: 99281; 99283

== ENCOUNTER 2023-09-04 12:33 | Emergency (ER) | payer MEDICAID ==
[2023-09-04] MEDS: Ondansetron 4 MG Tab.DIS PO ONE (13:12)
[2023-09-04] MEDS: Acetaminophen/HYDROcodone 325-5 MG Tab PO ONE (13:13)
[2023-09-04] MEDS: Famotidine 20 MG Tab PO ONE (13:13)
[2023-09-04 13:17] LABS: APPEARANCE,URINE CLEAR; BILIRUBIN,URINE NEGATIVE (NEGATIVE); COLOR,URINE YELLOW; GLUCOSE,URINE NEGATIVE (NEGATIVE); KETONES,URINE NEGATIVE (NEGATIVE); LEUKOCYTE ESTERASE,URINE NEGATIVE (NEGATIVE); NITRITE,URINE NEGATIVE (NEGATIVE); OCCULT BLOOD,URINE NEGATIVE (NEGATIVE); PH,URINE 6.5 (5.0-8.0); PROTEIN,URINE NEGATIVE (NEGATIVE); UROBILINOGEN,URINE 0.2 EU/dL (<2.0)
[2023-09-04 13:19] LABS: BASOPHILS ABSOLUTE AUTO 0.04 K/uL (0.00-0.20); BASOPHILS PERCENT AUTO 0.5 % (0.0-1.0); EOSINOPHILS ABSOLUTE AUTO 0.02 K/uL (0.00-0.45); EOSINOPHILS PERCENT AUTO 0.2 % (0.0-6.0); HEMATOCRIT 35.5 % (37.0-47.0); HEMOGLOBIN 13.1 g/dL (12.0-16.0); IMMATURE GRAN ABSOLUTE AUTO 0.02 K/uL (0.00-0.05); IMMATURE GRAN PERCENT AUTO 0.2 % (0.0-0.4); LYMPHOCYTES ABSOLUTE AUTO 1.74 K/uL (1.00-4.80); LYMPHOCYTES PERCENT AUTO 21.5 % (24.0-44.0); MEAN CORPUSCULAR HEMOGLOBIN 31.3 pg (28.0-32.0); MEAN CORPUSCULAR HGB CONC 36.9 g/dL (32.0-36.0); MEAN CORPUSCULAR VOLUME 84.9 fL (83.0-99.0); MEAN PLATELET VOLUME 8.7 fL (9.4-12.3); MONOCYTES ABSOLUTE AUTO 0.53 K/uL (0.00-0.80); MONOCYTES PERCENT AUTO 6.6 % (0.0-8.0); NEUTROPHILS ABSOLUTE AUTO 5.74 K/uL (1.80-7.70); PLATELET COUNT,PLT 244 K/uL (150-400); RED BLOOD CELL COUNT 4.18 M/uL (4.10-5.30); WHITE BLOOD CELL COUNT,WBC 8.09 K/uL (3.9-11.3)
[2023-09-04 14:46] LABS: A/G RATIO 0.9 (0.9-1.6); ALBUMIN 3.3 g/dL (3.4-5.0); BILIRUBIN TOTAL 0.6 mg/dL (0.2-1.0); CALCIUM 9.1 mg/dL (8.5-10.1); CARBON DIOXIDE,CO2 25.3 mmol/L (21.0-32.0); CREATININE 0.7 mg/dL (0.6-1.0); EST CRCL DRUG DOSING (CG) 100.55 mL/min; POTASSIUM,K 3.7 mmol/L (3.5-5.1); PROTEIN TOTAL,TP 7.1 g/dL (6.4-8.2)
[2023-09-04 15:25] VITALS: BP 116/69; PULSE 96
== END 2023-09-04 15:13 | disposition home or self-care (01) ==
LOC: MW.ED 12:33
DX: K29.70 Gastritis, unspecified, without bleeding (principal); J45.909 Unspecified asthma, uncomplicated; Z86.16 Personal history of COVID-19; Z79.899 Other long term (current) drug therapy; Z88.1 Allergy status to other antibiotic agents; Z88.8 Allergy status to other drugs, medicaments and biological substances; Z75.8 Other problems related to medical facilities and other health care
CPT/HCPCS: 36415; 76775; 80053; 81003; 85025; 99284; A9270

== ENCOUNTER 2024-01-13 20:11 | Emergency (ER) | payer MEDICAID ==
[2024-01-14 01:20] LABS: CORONAVIRUS COVID-19 NAA NEGATIVE (NEGATIVE); INFLUENZA A NAA NEGATIVE (NEGATIVE); INFLUENZA B NAA NEGATIVE (NEGATIVE); RESPIRATORY SYNCYTIAL VIR NAA NEGATIVE (NEGATIVE)
[2024-01-14 02:52] VITALS: BP 124/68; PULSE 94
== END 2024-01-14 02:51 | disposition home or self-care (01) ==
LOC: MW.ED 20:11
DX: J06.9 Acute upper respiratory infection, unspecified (principal); J01.90 Acute sinusitis, unspecified; J45.909 Unspecified asthma, uncomplicated; Z79.899 Other long term (current) drug therapy; Z88.1 Allergy status to other antibiotic agents; Z75.8 Other problems related to medical facilities and other health care
CPT/HCPCS: 0241U; 99284; 99283

== ENCOUNTER 2024-02-20 00:48 | Inpatient (IN) | payer MEDICAID ==
[2024-02-20] MEDS ORDERED: ePHEDrine 50 MG/ML SDV IVPUSH PRN (01:12)
[2024-02-20] MEDS ORDERED: dexmedeTOMIDine HCl 200 MCG/2 ML SDV EPIDUR SCH (01:15)
[2024-02-20] MEDS ORDERED: Carboprost Tromethamine 250 MCG/1 mL Vial IM PRN (02:23)
[2024-02-20] MEDS ORDERED: Lidocaine 1% 50 ML MDV INJECT PRN (02:23)
[2024-02-20] MEDS ORDERED: Misoprostol 200 MCG Tab PO PRN (02:23)
[2024-02-20] MEDS ORDERED: Sodium Chloride 0.9% 10 ML Syringe FLUSH PRN (02:23)
[2024-02-20] MEDS ORDERED: Methylergonovine 0.2 MG/1 ML Amp IM PRN (02:23)
[2024-02-20] MEDS ORDERED: Water For Irrigation,Sterile 1,000 ML Container IRR PRN (02:23)
[2024-02-20] MEDS ORDERED: Sodium Chloride 0.9% 2.5 ML Syringe FLUSH PRN (02:23)
[2024-02-20] MEDS ORDERED: Sodium Chloride 0.9% 20 ML SDV IV PRN (02:23)
[2024-02-20] MEDS: Butorphanol 2 MG/ML SDV IVPUSH PRN (03:08)
[2024-02-20 03:35] LABS: HEMATOCRIT 37.6 % (37.0-47.0); HEMOGLOBIN 12.9 g/dL (12.0-16.0); MEAN CORPUSCULAR HEMOGLOBIN 28.3 pg (28.0-32.0); MEAN CORPUSCULAR HGB CONC 34.3 g/dL (32.0-36.0); MEAN CORPUSCULAR VOLUME 82.5 fL (83.0-99.0); MEAN PLATELET VOLUME 10.7 fL (9.4-12.3); PLATELET COUNT,PLT 344 K/uL (150-400); RED BLOOD CELL COUNT 4.56 M/uL (4.10-5.30); WHITE BLOOD CELL COUNT,WBC 11.25 K/uL (3.9-11.3)
[2024-02-20] MEDS: Lactated Ringers 1,000 ML IV SCH (06:42)
[2024-02-20] MEDS ORDERED: Terbutaline 1 MG/ML SDV SUBCUT PRN (08:03)
[2024-02-20] MEDS: Ropivacaine HCl/PF 400 MG in Premix Bag 1 BAG EPIDUR SCH (08:33)
[2024-02-20] MEDS: Oxytocin/0.9 % Sodium Chloride 30 UNIT/500 ML BAG IV SCH (08:54)
[2024-02-20] MEDS: Phenylephrine HCl In 0.9% NaCl 1 MG/10 ML Syringe IVPUSH PRN (09:40)
[2024-02-20] MEDS: ePHEDrine 50 MG/ML SDV IM STA (10:20)
[2024-02-20] MEDS ORDERED: Ondansetron 4 MG/2 ML SDV ONE (10:34)
[2024-02-20] MEDS: Ondansetron 4 MG/2 ML SDV IVPUSH PRN (10:37)
[2024-02-20] MEDS: ePHEDrine 50 MG/ML SDV IM ONE (13:14)
[2024-02-20] MEDS: Ropivacaine HCl/PF 200 ML ONE (20:19)
[2024-02-20] MEDS: fentaNYL 100 MCG/2 ML SDV ONE (20:19)
[2024-02-21] MEDS: Oxytocin/0.9 % Sodium Chloride 30 UNIT/500 ML BAG IV SCH ×2 (00:22→01:44)
[2024-02-21] MEDS ORDERED: oxyCODONE 5 MG Tab PO PRN (02:09)
[2024-02-21] MEDS ORDERED: Lanolin 100% Cream 7 GM Tube TOP PRN (02:09)
[2024-02-21 03:32] LABS: PH,UMBILICAL ARTERIAL 7.196 (7.18-7.38); PH,UMBILICAL VENOUS 7.26 (7.25-7.45)
[2024-02-21] MEDS: Witch Hazel Medicated Pads 40/Jar TOP PRN (03:57)
[2024-02-21] MEDS: Ibuprofen 800 MG Tab PO PRN (03:59)
[2024-02-21] MEDS: Benzocaine/Menthol 20%-0.5% Spray 78 GM Cannister TOP PRN (03:59)
[2024-02-21] MEDS: Docusate Sodium 100 MG Cap PO PRN (10:14)
[2024-02-21] MEDS: Acetaminophen 500 MG Tab PO PRN (12:37)
[2024-02-21 12:59] VITALS: BP 120/71; PULSE 95
== END 2024-02-21 13:03 | disposition home or self-care (01) | DRG 806 ==
LOC: MW.OBCHECK 00:48 → MW.OB 00:50 → MW.OBCHECK 02:23 → MW.OB 02:23 → OBSVTOIN 02-21 01:42 → MW.OB 02-21 03:17
PROVIDERS: ADMIT Obstetrics & Gynecology; ATTEND Obstetrics & Gynecology
PROC: 10E0XZZ Delivery of Products of Conception, External Approach (ICD-10-PCS; principal; 2024-02-21)
PROC: 0HQ9XZZ Repair Perineum Skin, External Approach (ICD-10-PCS; 2024-02-21)
DX: O42.02 Full-term premature rupture of membranes, onset of labor within 24 hours of rupture (principal); O98.52 Other viral diseases complicating childbirth; Z37.0 Single live birth; B00.9 Herpesviral infection, unspecified; Z3A.39 39 weeks gestation of pregnancy; O99.344 Other mental disorders complicating childbirth; F41.9 Anxiety disorder, unspecified; O76 Abnormality in fetal heart rate and rhythm complicating labor and delivery; O77.0 Labor and delivery complicated by meconium in amniotic fluid; O70.0 First degree perineal laceration during delivery
CPT/HCPCS: 01967; 36415; 51702; 59025; 59409; 82803; 84112; 85027; 86592; 86850; 86900; 86901; A9270-GY; J0595; J2371; J2405; J2590; J2795; J3010; J3490; J7120

== ENCOUNTER 2024-03-23 19:04 | Emergency (ER) | payer MEDICAID ==
[2024-03-23 19:58] VITALS: BP 136/64; PULSE 90
[2024-03-23 20:13] LABS: APPEARANCE,URINE CLEAR; BILIRUBIN,URINE NEGATIVE (NEGATIVE); COLOR,URINE YELLOW; GLUCOSE,URINE NEGATIVE (NEGATIVE); KETONES,URINE NEGATIVE (NEGATIVE); LEUKOCYTE ESTERASE,URINE NEGATIVE (NEGATIVE); NITRITE,URINE NEGATIVE (NEGATIVE); OCCULT BLOOD,URINE LARGE (NEGATIVE); PROTEIN,URINE NEGATIVE (NEGATIVE); UROBILINOGEN,URINE 0.2 EU/dL (<2.0)
[2024-03-23] MEDS ORDERED: Sodium Chloride 0.9% 10 ML Syringe FLUSH PRN (20:19)
[2024-03-23 20:26] LABS: BACTERIA,URINE NOT SEEN (NEGATIVE); EPITHELIAL CELLS,URINE NOT SEEN (NONE-FEW); WBC,URINE 0-2 (0-5/HPF)
[2024-03-23] MEDS: Sodium Chloride 0.9% 1,000 ML IV ONE (20:40)
[2024-03-23] MEDS: Morphine 2 MG/ML SYRINGE IVPUSH ONE (20:40)
[2024-03-23 20:49] LABS: BASOPHILS ABSOLUTE AUTO 0.04 K/uL (0.00-0.20); BASOPHILS PERCENT AUTO 0.5 % (0.0-1.0); EOSINOPHILS ABSOLUTE AUTO 0.14 K/uL (0.00-0.45); EOSINOPHILS PERCENT AUTO 1.8 % (0.0-6.0); HEMATOCRIT 40.1 % (37.0-47.0); HEMOGLOBIN 13.5 g/dL (12.0-16.0); IMMATURE GRAN ABSOLUTE AUTO 0.01 K/uL (0.00-0.05); IMMATURE GRAN PERCENT AUTO 0.1 % (0.0-0.4); LYMPHOCYTES ABSOLUTE AUTO 3.48 K/uL (1.00-4.80); LYMPHOCYTES PERCENT AUTO 43.8 % (24.0-44.0); MEAN CORPUSCULAR HEMOGLOBIN 28.1 pg (28.0-32.0); MEAN CORPUSCULAR HGB CONC 33.7 g/dL (32.0-36.0); MEAN CORPUSCULAR VOLUME 83.4 fL (83.0-99.0); MEAN PLATELET VOLUME 9.3 fL (9.4-12.3); MONOCYTES PERCENT AUTO 7.6 % (0.0-8.0); NEUTROPHILS ABSOLUTE AUTO 3.67 K/uL (1.80-7.70); NEUTROPHILS PERCENT AUTO 46.2 % (41.0-71.0); PLATELET COUNT,PLT 284 K/uL (150-400); RED BLOOD CELL COUNT 4.81 M/uL (4.10-5.30); WHITE BLOOD CELL COUNT,WBC 7.94 K/uL (3.9-11.3)
[2024-03-23] MEDS: Ketorolac 30 MG/ML SDV IVPUSH ONE (21:00)
[2024-03-23 21:22] LABS: A/G RATIO 1.2 (0.9-1.6); ALBUMIN 3.9 g/dL (3.4-5.0); BILIRUBIN TOTAL 0.7 mg/dL (0.2-1.0); CALCIUM 8.9 mg/dL (8.5-10.1); CREATININE 1.1 mg/dL (0.6-1.0); EST CRCL DRUG DOSING (CG) 63.4 mL/min; POTASSIUM,K 3.8 mmol/L (3.5-5.1); PROTEIN TOTAL,TP 7.1 g/dL (6.4-8.2)
== END 2024-03-23 21:58 | disposition home or self-care (01) ==
LOC: MW.ED 19:04
DX: O99.893 Other specified diseases and conditions complicating puerperium (principal); N20.0 Calculus of kidney; Z86.16 Personal history of COVID-19; Z88.0 Allergy status to penicillin; Z88.1 Allergy status to other antibiotic agents; Z88.8 Allergy status to other drugs, medicaments and biological substances; Z79.51 Long term (current) use of inhaled steroids; Z79.899 Other long term (current) drug therapy
CPT/HCPCS: 36415; 74176; 80053; 81001; 81025; 83605; 83690; 85025; 96361; 96374; 96375; 99284; J1885; J2270; J7030

== ENCOUNTER 2025-04-02 16:48 | Emergency (ER) | payer MEDICAID ==
[2025-04-02 18:05] LABS: BASOPHILS ABSOLUTE AUTO 0.05 K/uL (0.00-0.20); BASOPHILS PERCENT AUTO 0.5 % (0.0-1.0); EOSINOPHILS ABSOLUTE AUTO 0.03 K/uL (0.00-0.45); EOSINOPHILS PERCENT AUTO 0.3 % (0.0-6.0); IMMATURE GRAN ABSOLUTE AUTO 0.01 K/uL (0.00-0.05); IMMATURE GRAN PERCENT AUTO 0.1 % (0.0-0.4); LYMPHOCYTES ABSOLUTE AUTO 1.88 K/uL (1.00-4.80); LYMPHOCYTES PERCENT AUTO 17.6 % (24.0-44.0); MEAN PLATELET VOLUME 8.9 fL (9.4-12.3); MONOCYTES ABSOLUTE AUTO 0.50 K/uL (0.00-0.80); MONOCYTES PERCENT AUTO 4.7 % (0.0-8.0); NEUTROPHILS ABSOLUTE AUTO 8.22 K/uL (1.80-7.70); NEUTROPHILS PERCENT AUTO 76.8 % (41.0-71.0); NRBC ABSOLUTE 0.00 K/uL (0.00-0.02); NRBC PERCENT 0.0 /100WBC (0.0-0.2); PLATELET COUNT,PLT 300 K/uL (150-400); RED BLOOD CELL COUNT 4.96 M/uL (4.10-5.30); WHITE BLOOD CELL COUNT,WBC 10.69 K/uL (3.9-11.3)
[2025-04-02] MEDS ORDERED: Sodium Chloride 0.9% 2.5 ML Syringe FLUSH PRN (18:22)
[2025-04-02] MEDS ORDERED: Sodium Chloride 0.9% 10 ML Syringe FLUSH PRN (18:22)
[2025-04-02 18:31] LABS: A/G RATIO 0.9 (0.9-1.6); ALANINE AMINOTRANSFERASE,ALT 29.0 IU/L (14-63); ASPARTATE AMNIOTRANSFERASE,AST 17.0 IU/L (15-37); BILIRUBIN TOTAL 0.8 mg/dL (0.2-1.0); BLOOD UREA NITROGEN,BUN 9.0 mg/dL (7.0-18.0); CARBON DIOXIDE,CO2 29.3 mmol/L (21.0-32.0); CHLORIDE,CL 103.0 mmol/L (98-107); CREATININE 1.0 mg/dL (0.6-1.0); EST CRCL DRUG DOSING (CG) 69.1 mL/min; GLUCOSE RANDOM 114.0 mg/dL (74-106); POTASSIUM,K 4.2 mmol/L (3.5-5.1); PROTEIN TOTAL,TP 7.8 g/dL (6.4-8.2); SODIUM,NA 140.0 mmol/L (136-145)
[2025-04-02 18:33] LABS: ESTIMATED GFR 76.0 mL/min (>60)
[2025-04-02 18:36] LABS: LACTIC ACID 1.3 mmol/L (0.4-2.0)
[2025-04-02] MEDS: Ketorolac 30 MG/ML SDV IVPUSH ONE (19:14)
[2025-04-02] MEDS: Ondansetron 4 MG/2 ML SDV IVPUSH ONE (19:15)
[2025-04-02 19:21] LABS: APPEARANCE,URINE CLEAR; GLUCOSE,URINE NEGATIVE (NEGATIVE); OCCULT BLOOD,URINE NEGATIVE (NEGATIVE)
[2025-04-02] MEDS: Iopamidol 755 MG/ML 500 ML Multipack Bottle IVPUSH STA (20:02)
[2025-04-02 21:54] VITALS: BP 107/74; PULSE 86
== END 2025-04-02 21:53 | disposition home or self-care (01) ==
LOC: MW.ED 16:48
DX: R10.32 Left lower quadrant pain (principal); Z79.899 Other long term (current) drug therapy; Z88.8 Allergy status to other drugs, medicaments and biological substances
CPT/HCPCS: 36415; 74177; 80053; 81003; 81025; 83605; 83690; 84703; 85025; 96374; 96375; 99284; J1885; J2270; J2405; Q9967; 99283